=== PATIENT | male | born 1985 | race Caucasian/White ===

== ENCOUNTER 2016-05-22 17:04 | Emergency (ER) | payer OTHER ==
[2016-05-22 17:26] VITALS: BP 143/88
[2016-05-22] MEDS ORDERED: Proparacaine 0.5% Ophth Soln 15 ML Bottle EYERT ONE (17:38)
--- NOTE | 2016-05-22 18:22 | EDM.PDOC ---
ED HPI EYE COMPLAINT - General Chief Complaint: Eye Problems Stated Complaint: MATERIAL STUCK IN EYE Time Seen by Provider: 05/22/16 17:24 Source: Reports: Patient History Limitations: Reports: No limitations - History of Present Illness INITIAL COMMENTS - FREE TEXT/NARRATIVE: Presents reporting that he was fine when he went to bed last night but when he awoke his right eye was irritated and red. During the day it has been increasingly irritated feeling and tearing. 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 - Related Data Allergies/ADRs: Allergies silver [From Tegaderm AG Mesh] Allergy (Verified 05/22/16 17:22) Hives Home Meds: Ambulatory Orders Medication Instructions Recorded Confirmed Albuterol [Proventil HFA] 1 puff INH ASDIRECTED 05/22/16 05/22/16 Adam/Polymyx B Sulf/Dexameth 2 drop OP Q4HR #1 bottle 05/22/16 [Pmkjkw-Vpgvr-Sapfviep Eye Drop] Past Medical History HEENT History: Reports: None Cardiovascular History: Reports: None Other Cardiovascular History: No medications for BP currently, denies any in past Respiratory History: Reports: Asthma Gastrointestinal History: Reports: None Genitourinary History: Reports: None Other Musculoskeletal History: torn right rotator cuff Neurological History: Reports: None Psychiatric History: Reports: None Endocrine/Metabolic History: Reports: None Hematologic History: Reports: None Oncologic (Cancer) History: Reports: None Other Dermatologic History: Current rash on arms and chest "office assistance seen in [facility] prescribed, they said some type of yeast" - Infectious Disease History Infectious Disease History: Reports: None - Past Surgical History Other HEENT Surgeries/Procedures: tooth extractions Other Male Surgeries/Procedures: Removal kidney stone Social & Family History - Family History Family Medical History: Noncontributory - Tobacco Use Smoking Status *Q: Never Smoker Years of Tobacco use: 2 Second Hand Smoke Exposure: Yes - Caffeine Use Caffeine Use: Reports: Soda - Alcohol Use Days Per Week of Alcohol Use: 2 Number of Drinks Per Day: 0 Total Drinks Per Week: 0 - Recreational Drug Use Recreational Drug Use: No Drug Use in Last 12 Months: No ED ROS GENERAL - Review of Systems Review Of Systems: ROS reveals no pertinent complaints other than HPI. ED EXAM GENERAL W FULL EYE - Physical Exam Exam: See Below Exam Limited By: No limitations General Appearance: alert, no apparent distress Visual acuity (R) 20/: 40 Visual acuity (L) 20/: 25 With Correction: No Eyelids: bilateral: normal appearance Conjunctiva & Sclera: right: injected Cornea Exam: right: corneal abrasion, examined with flourescein Extraocular Movements: bilateral: intact Pupils: normal accommodation Pupillary Size: bilateral: 4 mm Pupillary Reaction: bilateral: brisk Anterior Chamber: bilateral: normal appearance Ears: normal external exam Nose: normal inspection Throat/Mouth: Normal inspection Head: atraumatic, normocephalic Neck: normal inspection Respiratory/Chest: no respiratory distress Cardiovascular: normal peripheral pulses GI/Abdominal: soft Extremities: normal inspection Neurological: alert, oriented, normal cognition Psychiatric: normal affect, normal mood Skin Exam: Warm, Dry, Intact, Normal color Lymphatic: no adenopathy Course - Vital Signs Last Recorded V/S: Last Vital Signs Temp 36.9 C 05/22/16 17:23 Pulse 73 05/22/16 17:23 Resp 16 05/22/16 17:23 BP 143/88 H 05/22/16 17:23 Pulse Ox 98 05/22/16 17:23 - Orders/Labs/Meds Meds: Medications Discontinued Medications Generic Name Dose Route Start Last Admin Trade Name Asya PRN Reason Stop Dose Admin Proparacaine HCl 2 ml 05/22/16 17:38 05/22/16 17:55 Proparacaine 0.5% Ophth Soln EYERT 05/22/16 17:39 2 drop STAT ONE Administration Departure - Departure Time of Disposition: 18:16 Disposition: Home, Self-Care 01 Clinical Impression: Corneal abrasion Qualifiers: Encounter type: initial encounter Laterality: right Qualified Code(s): S05.01XA - Injury of conjunctiva and corneal abrasion without foreign body, right eye, initial encounter Referrals: Jonas Cobb MD [Primary Care Provider] - [facility] [Outside] Forms: ED Department Discharge Additional Instructions: 1. use the eyedrops 2 drops every 4 hours for next 3 days 2. if redness and irritation not significantly improved in 24 hours, see ophthalmology promptly 3. return if symptoms worsen or do not improve as expected
== END 2016-05-22 18:39 | disposition home or self-care (01) ==
LOC: MW.ED 17:04
DX: S05.01XA Injury of conjunctiva and corneal abrasion without foreign body, right eye, initial encounter (principal); Z98.890 Other specified postprocedural states; X58.XXXA Exposure to other specified factors, initial encounter
CPT/HCPCS: 99283

== ENCOUNTER 2016-09-28 22:12 | Emergency (ER) | payer OTHER ==
[2016-09-28] MEDS ORDERED: Sodium Chloride 0.9% 2.5 ML Syringe FLUSH PRN (22:24)
[2016-09-28] MEDS ORDERED: HYDROmorphone 2 MG/ML Syringe IVPUSH ONE (22:24)
[2016-09-28] MEDS ORDERED: Ketorolac 30 MG/ML SDV IVPUSH ONE (22:24)
[2016-09-28] MEDS ORDERED: Sodium Chloride 0.9% 10 ML Syringe FLUSH PRN (22:24)
[2016-09-28] MEDS ORDERED: Sodium Chloride 0.9% 1,000 ML IV ONE ×2 (22:24→23:43)
[2016-09-28] MEDS ORDERED: Ondansetron 4 MG/2 ML SDV IVPUSH ONE (22:24)
--- NOTE | 2016-09-28 22:27 | EDM.PDOC ---
ED HPI GENERAL MEDICAL PROBLEM - General Chief Complaint: Flank Pain Stated Complaint: PT HAS STOMACH AND BACK PAIN Time Seen by Provider: 09/28/16 22:20 - History of Present Illness INITIAL COMMENTS - FREE TEXT/NARRATIVE: HISTORY AND PHYSICAL: History of present illness: The patient is a 31-year-old male with a history of asthma and one prior kidney stone which required surgical removal due to the size and location who presents with sudden onset of left flank left abdominal pain that started one hour ago suddenly. Earlier today and this evening had a normal day without any systemic complaints and has had no fever chest pain abdominal trauma vomiting or diarrhea. The pain started suddenly and is in his left back left mid abdomen and radiates to his groin. He has no testicular pain or swelling per se but says that the pain does radiate from his flank down to his groin episodically. He has had nausea with the pain but no fevers or vomiting or diarrhea. Patient did not take anything for pain prior to coming here. He's had no hematuria dysuria or frequency. Review of systems: As per history of present illness and below otherwise all systems reviewed and negative. Past medical history: As per history of present illness and as reviewed below otherwise noncontributory. Surgical history: As per history of present illness and as reviewed below otherwise noncontributory. Social history: No reported history of drug or alcohol abuse. Family history: As per history of present illness and as reviewed below otherwise noncontributory. Physical exam: General: Well-developed overweight male who looks uncomfortable in the room and is uneasy in the room but is nontoxic HEENT: Atraumatic, normocephalic, pupils reactive, negative for conjunctival pallor or scleral icterus, mucous membranes moist, throat clear, neck supple, nontender, trachea midline. Lungs: Clear to auscultation, breath sounds equal bilaterally, chest nontender. Heart: S1S2, regular, negative for clicks, rubs, or JVD. Abdomen: Soft, nondistended, nontender. I cannot reproduce the pain on palpation and there is no rebound or guarding bowel sounds are hypoactive Negative for masses or hepatosplenomegaly. Negative for costovertebral tenderness. Pelvis: Stable nontender. Genitourinary: Deferred. Rectal: Deferred. Extremities: Atraumatic, negative for cords or calf pain. Neurovascular unremarkable. Neuro: Awake, alert, oriented. Cranial nerves II through XII unremarkable. Cerebellum unremarkable. Motor and sensory unremarkable throughout. Exam nonfocal. Diagnostics: CBC CMP UA urine culture CT scan of the abdomen and pelvis Therapeutics: IV fluids Zofran Dilaudid Toradol Flomax urine strainers Patient is feeling significantly improved and he and significant other at the bedside are aware of testing results and need for follow-up with our urologist. I will give him Flomax Zofran and pain medications as well as urine strainers for home. Advised on reasons to return. Impression: Left ureteral stone Definitive disposition and diagnosis as appropriate pending reevaluation and review of above. Flank Pain Score (Numeric/FACES): 10 - Related Data Allergies Allergy/AdvReac Type Severity Reaction Status Date / Time silver Allergy Hives Verified 05/22/16 17:22 [From Tegaderm AG Mesh] Home Meds: Home Meds Albuterol [Proventil HFA] 1 puff INH ASDIRECTED 05/22/16 [History] Citalopram Hydrobromide [Citalopram HBr] 20 mg PO DAILY 09/28/16 [History] Phentermine HCl 37.5 mg PO DAILY 09/28/16 [History] Past Medical History HEENT History: Reports: None Cardiovascular History: Reports: None Other Cardiovascular History: No medications for BP currently, denies any in past Respiratory History: Reports: Asthma Gastrointestinal History: Reports: None Genitourinary History: Reports: None Other Musculoskeletal History: torn right rotator cuff Neurological History: Reports: None Psychiatric History: Reports: None Endocrine/Metabolic History: Reports: None Hematologic History: Reports: None Oncologic (Cancer) History: Reports: None Other Dermatologic History: Current rash on arms and chest "fish protector seen in [facility] prescribed, they said some type of yeast" - Infectious Disease History Infectious Disease History: Reports: None - Past Surgical History Other HEENT Surgeries/Procedures: tooth extractions Other Male Surgeries/Procedures: Removal kidney stone Social & Family History - Family History Family Medical History: Noncontributory - Tobacco Use Smoking Status *Q: Never Smoker Years of Tobacco use: 2 Second Hand Smoke Exposure: Yes - Caffeine Use Caffeine Use: Reports: Soda - Alcohol Use Days Per Week of Alcohol Use: 2 Number of Drinks Per Day: 0 Total Drinks Per Week: 0 - Recreational Drug Use Recreational Drug Use: No Drug Use in Last 12 Months: No ED ROS GENERAL - Review of Systems Review Of Systems: ROS reveals no pertinent complaints other than HPI. ED EXAM, GENERAL - Physical Exam Exam: See Below (See dictation) Course - Vital Signs Last Recorded V/S: Last Vital Signs Temp 36.2 C 09/29/16 00:15 Pulse 74 09/29/16 00:15 Resp 16 09/29/16 00:15 BP 119/80 09/29/16 00:15 Pulse Ox 98 09/29/16 00:15 - Orders/Labs/Meds Orders: Active Orders 24 hr Category Date Time Status Communication Order [RC] STAT Care 09/28/16 23:46 Active Abdomen Pelvis wo Cont [CT] Stat Exams 09/28/16 22:24 Taken CULTURE URINE [RM] Stat Lab 09/29/16 00:46 Received HYDROmorphone [Dilaudid] Med 09/29/16 01:19 Once 0.5 mg IVPUSH ONETIME ONE Sodium Chloride 0.9% [Saline Flush] Med 09/28/16 22:24 Active 10 ml FLUSH ASDIRECTED PRN Sodium Chloride 0.9% [Saline Flush] Med 09/28/16 22:24 Active 2.5 ml FLUSH ASDIRECTED PRN Saline Lock Insert [OM.PC] Stat Oth 09/28/16 22:24 Ordered Medication Orders Sodium Chloride (Saline Flush) 10 ml FLUSH ASDIRECTED PRN PRN Reason: Keep Vein Open Sodium Chloride (Saline Flush) 2.5 ml FLUSH ASDIRECTED PRN PRN Reason: Keep Vein Open Labs: Laboratory Tests 09/28/16 09/28/16 09/29/16 Range/Units 22:30 22:30 00:46 WBC 10.74 (4.0-11.0) K/uL RBC 4.80 (4.50-5.90) M/uL Hgb 15.0 (13.0-17.0) g/dL Hct 41.0 (38.0-50.0) % MCV 85.4 (80.0-98.0) fL MCH 31.3 (27.0-32.0) pg MCHC 36.6 (31.0-37.0) g/dL RDW Std Deviation 40.0 (28.0-62.0) fl RDW Coeff of Jose 13 (11.0-15.0) % Plt Count 206 (150-400) K/uL MPV 9.60 (7.40-12.00) fL Neut % (Auto) 63.3 (48.0-80.0) % Lymph % (Auto) 27.4 (16.0-40.0) % [place] % (Auto) 7.3 (0.0-15.0) % Eos % (Auto) 1.7 (0.0-7.0) % Baso % (Auto) 0.3 (0.0-1.5) % Neut # (Auto) 6.8 H (1.4-5.7) K/uL Lymph # (Auto) 2.9 H (0.6-2.4) K/uL [place] # (Auto) 0.8 (0.0-0.8) K/uL Eos # (Auto) 0.2 (0.0-0.7) K/uL Baso # (Auto) 0.0 (0.0-0.1) K/uL Nucleated RBC % 0.0 /100WBC Nucleated RBCs # 0 K/uL Sodium 144 (136-146) mmol/L Potassium 4.4 (3.5-5.1) mmol/L Chloride 110 (98-110) mmol/L Carbon Dioxide 23 (21-31) mmol/L BUN 16 (6.0-23.0) mg/dL Creatinine 1.3 (0.6-1.5) mg/dL Est Cr Clr Drug Dosing 98.40 mL/min Estimated GFR (MDRD) > 60.0 ml/min Glucose 84 (60-110) mg/dL Calcium 9.5 (8.8-10.8) mg/dL Total Bilirubin 0.8 (0.1-1.5) mg/dL AST 19 (5-40) IU/L ALT 26 (8-54) IU/L Alkaline Phosphatase 83 (40-150) Total Protein 7.7 (6.0-8.0) g/dL Albumin 4.3 (3.5-5.0) g/dL Globulin 3.4 (2.0-3.5) g/dL Albumin/Globulin Ratio 1.3 (1.3-2.8) Urine Color YELLOW Urine Appearance CLEAR Urine pH 5.5 (5.0-8.0) Ur Specific [place] 1.025 (1.001-1.035) Urine Protein NEGATIVE (NEGATIVE) mg/dL Urine Glucose (UA) NEGATIVE (NEGATIVE) mg/dL Urine Ketones NEGATIVE (NEGATIVE) mg/dL Urine Occult Blood LARGE H (NEGATIVE) Urine Nitrite NEGATIVE (NEGATIVE) Urine Bilirubin NEGATIVE (NEGATIVE) Urine Urobilinogen 0.2 (<2.0) EU/dL Ur Leukocyte Esterase TRACE (NEGATIVE) Urine RBC 16-20 (0-2/HPF) Urine WBC 2-4 (0-5/HPF) Ur Epithelial Cells RARE (NONE-FEW) Urine Bacteria RARE (NEGATIVE) Urine Mucus LIGHT (NONE-MOD) Meds: Medications Generic Name Dose Route Start Last Admin Trade Name Asya PRN Reason Stop Dose Admin Sodium Chloride 10 ml 09/28/16 22:24 Saline Flush FLUSH ASDIRECTED PRN Keep Vein Open Sodium Chloride 2.5 ml 09/28/16 22:24 Saline Flush FLUSH ASDIRECTED PRN Keep Vein Open Discontinued Medications Generic Name Dose Route Start Last Admin Trade Name Asya PRN Reason Stop Dose Admin Hydromorphone HCl 1 mg 09/28/16 22:24 09/28/16 22:54 Dilaudid IVPUSH 09/28/16 22:25 1 mg ONETIME ONE Administration Sodium Chloride 1,000 mls @ 999 mls/hr 09/28/16 22:24 09/28/16 22:54 Normal Saline IV 09/28/16 23:24 999 mls/hr STAT ONE Administration Sodium Chloride 1,000 mls @ 999 mls/hr 09/28/16 23:43 09/28/16 23:50 Normal Saline IV 09/29/16 00:43 999 mls/hr STAT ONE Administration Ketorolac Tromethamine 30 mg 09/28/16 22:24 09/28/16 22:53 Toradol IVPUSH 09/28/16 22:25 30 mg ONETIME ONE Administration Ondansetron HCl 4 mg 09/28/16 22:24 09/28/16 22:53 Zofran IVPUSH 09/28/16 22:25 4 mg ONETIME ONE Administration Tamsulosin HCl 0.4 mg 09/28/16 23:46 09/28/16 23:53 Flomax PO 09/28/16 23:47 0.4 mg ONETIME ONE Administration Departure - Departure Time of Disposition: 01:20 Disposition: Home, Self-Care 01 Condition: Good Clinical Impression: Ureterolithiasis - Discharge Information Forms: ED Department Discharge Additional Instructions: The following information is given to patients seen in the emergency department who are being discharged to home. This information is to outline your options for follow-up care. We provide all patients seen in our emergency department with a follow-up referral. The need for follow-up, as well as the timing and circumstances, are variable depending upon the specifics of your emergency department visit. If you don't have a primary care physician on staff, we will provide you with a referral. We always advise you to contact your personal physician following an emergency department visit to inform them of the circumstance of the visit and for follow-up with them and/or the need for any referrals to a consulting specialist. The emergency department will also refer you to a specialist when appropriate. This referral assures that you have the opportunity for followup care with a specialist. All of these measure are taken in an effort to provide you with optimal care, which includes your followup. Under all circumstances we always encourage you to contact your private physician who remains a resource for coordinating your care. When calling for followup care, please make the office aware that this follow-up is from your recent emergency room visit. If for any reason you are refused follow-up, please contact the [facility] emergency department at and ask to speak to the emergency department charge nurse. [facility] [address] [place] [id number] [facility] Primary care- Internal Medicine and Family [address] [address] Push hydration as we discussed and take medications as prescribed--- Flomax Zofran [place]--- and strain all urine. Please call and follow-up with our urologist Dr. Sears in the next few days as well as primary care and return here as needed and as discussed. - My Orders Last 24 Hours: My Active Orders 09/28/16 22:24 Abdomen Pelvis wo Cont [CT] Stat Sodium Chloride 0.9% [Saline Flush] 10 ml FLUSH ASDIRECTED PRN Sodium Chloride 0.9% [Saline Flush] 2.5 ml FLUSH ASDIRECTED PRN Saline Lock Insert [OM.PC] Stat 09/28/16 23:46 Communication Order [RC] STAT 09/29/16 00:46 CULTURE URINE [RM] Stat 09/29/16 01:19 HYDROmorphone [Dilaudid] 0.5 mg IVPUSH ONETIME ONE - Assessment/Plan Last 24 Hours: My Active Orders 09/28/16 22:24 Abdomen Pelvis wo Cont [CT] Stat Sodium Chloride 0.9% [Saline Flush] 10 ml FLUSH ASDIRECTED PRN Sodium Chloride 0.9% [Saline Flush] 2.5 ml FLUSH ASDIRECTED PRN Saline Lock Insert [OM.PC] Stat 09/28/16 23:46 Communication Order [RC] STAT 09/29/16 00:46 CULTURE URINE [RM] Stat 09/29/16 01:19 HYDROmorphone [Dilaudid] 0.5 mg IVPUSH ONETIME ONE
[2016-09-28 23:01] LABS: CHLORIDE,CL 110 mmol/L (98-110); SODIUM,NA 144 mmol/L (136-146)
[2016-09-28] MEDS ORDERED: Tamsulosin 0.4 MG Cap.ER PO ONE (23:46)
[2016-09-29] MEDS ORDERED: HYDROmorphone 2 MG/ML Syringe IVPUSH ONE ×2 (01:19→01:20)
[2016-09-29 01:50] VITALS: BP 121/88
--- NOTE | 2016-09-29 10:02 | CT ---
EXAM DATE: 09/28/16 PATIENT'S AGE: 31 Patient: TIFFANIE WHITE Facility: [place], [place] Site . Site : 1985 Study: CT Abdomen/Pelvis [id number]/25/2017 11:14:37 PM Ordering Physician: Amy Nava Final Report: INDICATION: Left flank pain. History of kidney stones TECHNIQUE: CT abdomen and pelvis without contrast. COMPARISON: None FINDINGS: Lower chest: Unremarkable. Liver: Unremarkable. Spleen: Unremarkable. Pancreas: Unremarkable. Gallbladder and bile ducts: Unremarkable. Kidneys: 4 millimeters obstructing calculi left UVJ with mild left hydronephrosis. Multiple bilateral punctate/subcentimeter nonobstructing renal calculi. Adrenal glands: Unremarkable. GI tract: Unremarkable. Appendix is normal. Vascular structures: Unremarkable. Lymph nodes: Unremarkable. Miscellaneous: Unremarkable. No free air or significant free fluid. Pelvic Organs: Unremarkable. Bones: Unremarkable for age. IMPRESSION: 4 millimeter obstructing calculus at the UVJ with mild left hydronephrosis. Multiple bilateral sub centimeters/punctate nonobstructing renal calculi. Dictated by Julio Patel MD @ 09/28/2016 11:27:09 PM Dictated by: Julio Patel MD @ 09/28/2016 23:27:15 (Electronic Signature) Report Signed by Proxy. [facility]ITAL[facility]
== END 2016-09-29 01:43 | disposition home or self-care (01) ==
LOC: MW.ED 22:12
DX: N20.1 Calculus of ureter (principal); Z87.442 Personal history of urinary calculi; Z79.899 Other long term (current) drug therapy
CPT/HCPCS: 74176; 80053; 81001; 85025; 87086; 96361; 96374; 96375; 96376; 99284; A9270; J1170; J1885; J2405; J7040

== ENCOUNTER 2017-01-13 07:32 | Emergency (ER) | payer OTHER ==
[2017-01-13] MEDS ORDERED: Sodium Chloride 0.9% 1,000 ML IV SCH ×2 (07:55→09:20)
[2017-01-13] MEDS ORDERED: Sodium Chloride 0.9% 2.5 ML Syringe FLUSH PRN (08:09)
[2017-01-13] MEDS ORDERED: Sodium Chloride 0.9% 10 ML Syringe FLUSH PRN (08:09)
[2017-01-13] MEDS ORDERED: Ondansetron 4 MG/2 ML SDV IVPUSH ONE (08:09)
[2017-01-13] MEDS ORDERED: HYDROmorphone 2 MG/ML Syringe IVPUSH ONE ×2 (08:09→09:47)
[2017-01-13] MEDS ORDERED: Ketorolac 30 MG/ML SDV IVPUSH ONE (08:09)
--- NOTE | 2017-01-13 08:13 | EDM.PDOC ---
ED HPI GENERAL MEDICAL PROBLEM - General Chief Complaint: Genitourinary Problem Stated Complaint: KINDNEY STONES Time Seen by Provider: 01/13/17 07:52 - History of Present Illness INITIAL COMMENTS - FREE TEXT/NARRATIVE: HISTORY AND PHYSICAL: History of present illness: The patient is a 32-year-old male with a long-standing history of kidney stones was last seen here in our emergency department in September with a 4 mm calculus on the left UVJ which he passed spontaneously. Patient says he followed up with urologist and was told that he had more kidney stones and he said he had a normal day yesterday slept fine all night and woke this morning with severe left flank and left lower quadrant pain that started at 6:30 this morning. Patient says it feels like a kidney stone. He is nauseated with the pain but has no fevers and has not had any vomiting or diarrhea. Yesterday he was passing his urine normally without hematuria and he had no systemic complaints yesterday. Patient denies any testicular swelling but has pain that starts in his lower back on the left and radiates to the left testicle. Review of systems: As per history of present illness and below otherwise all systems reviewed and negative. Past medical history: As per history of present illness and as reviewed below otherwise noncontributory. Surgical history: As per history of present illness and as reviewed below otherwise noncontributory. Social history: No reported history of drug or alcohol abuse. Family history: As per history of present illness and as reviewed below otherwise noncontributory. Physical exam: General: Well-developed overweight male who is nontoxic and looks very uncomfortable in the room. Vital signs are noted by me HEENT: Atraumatic, normocephalic, negative for conjunctival pallor or scleral icterus, mucous membranes tacky, throat clear, neck supple, nontender, trachea midline. Lungs: Clear to auscultation, breath sounds equal bilaterally, chest nontender. Heart: S1S2, regular rate and rhythm no overt murmurs Abdomen: Soft, nondistended, nontender. I cannot reproduce the pain on palpation. Negative for costovertebral tenderness. Pelvis: Stable nontender. Genitourinary: Deferred. Rectal: Deferred. Extremities: Atraumatic, negative for cords or calf pain. Neurovascular unremarkable. Neuro: Awake, alert, oriented. Cranial nerves II through XII unremarkable. Cerebellum unremarkable. Motor and sensory unremarkable throughout. Exam nonfocal. Back: There are no midline step-offs in his defects of the thoracic or lumbar spine no discrete CVA tenderness and no reproducible soft tissue back pain on palpation Diagnostics: UA urine culture CBC CMP CT scan of the abdomen and pelvis Therapeutics: IV, IV fluids, Zofran, Toradol, Dilaudid Flomax CT scan of September 28 of this year was reviewed by me 0945: Patient states that his pain is improved but is starting to come back. He' s had no nausea here. He is aware of testing results and I will give him one dose of Flomax here and another dose of Dilaudid. He has yet to give a urine sample I will hold him here until I get that. Then we will reevaluate for disposition. He is aware that we do not have urology on-call today and that if his pain was not tolerable that he would need to be transferred for further care. 1055: Patient feels improved again and he is aware of our restrictions here with urology. He says he would like to try to go home and pass the stone as he has passed similar size in the past. We will give him urine strainers, Flomax, Zofran, Percocet, and Cipro antibiotics. He is aware of his urine having white blood cells and this may be a sign of an early infection so we will treat it. I cautioned him on reasons to return to the ED and that if his pain is not managed at home, he started having intractable vomiting or a fever that he will need to be transferred where a urologist as available and he states understanding. Even with this in mind he would still like to try to go home and will connect with follow-up as an outpatient. Impression: Left ureterolithiasis Definitive disposition and diagnosis as appropriate pending reevaluation and review of above. Left Testicle Pain Score (Numeric/FACES): 9 - Related Data Allergies Allergy/AdvReac Type Severity Reaction Status Date / Time silver Allergy Hives Verified 05/22/16 17:22 [From Tegaderm AG Mesh] IV contrast Allergy Chest Uncoded 01/13/17 07:44 Tightness Home Meds: Home Meds Albuterol [Proventil HFA] 1 puff INH ASDIRECTED 05/22/16 [History] Citalopram Hydrobromide [Citalopram HBr] 20 mg PO DAILY 09/28/16 [History] Phentermine HCl 37.5 mg PO DAILY 09/28/16 [History] Past Medical History HEENT History: Reports: None Cardiovascular History: Reports: None Other Cardiovascular History: No medications for BP currently, denies any in past Respiratory History: Reports: Asthma Gastrointestinal History: Reports: None Genitourinary History: Reports: None Other Musculoskeletal History: torn right rotator cuff Neurological History: Reports: None Psychiatric History: Reports: None Endocrine/Metabolic History: Reports: None Hematologic History: Reports: None Oncologic (Cancer) History: Reports: None Other Dermatologic History: Current rash on arms and chest "gauge [facility] [place] [facility] said some type of [facility]" - Infectious Disease History Infectious Disease History: Reports: Chicken Pox - Past Surgical History Other HEENT Surgeries/Procedures: tooth extractions Other Male Surgeries/Procedures: Removal kidney stone Social & Family History - Family History Family Medical History: Noncontributory - Tobacco Use Smoking Status *Q: Never Smoker Years of Tobacco use: 2 Second Hand Smoke Exposure: No - Caffeine Use Caffeine Use: Reports: Energy Drinks, Soda - Alcohol Use Days Per Week of Alcohol Use: 2 Number of Drinks Per Day: 2 Total Drinks Per Week: 4 - Recreational Drug Use Recreational Drug Use: No Drug Use in Last 12 Months: No ED ROS GENERAL - Review of Systems Review Of Systems: ROS reveals no pertinent complaints other than HPI. (See dictation) ED EXAM, GENERAL - Physical Exam Exam: See Below (See dictation) Course - Vital Signs Last Recorded V/S: Last Vital Signs Temp 36.7 C 01/13/17 09:21 Pulse 78 01/13/17 09:21 Resp 16 01/13/17 09:21 BP 134/80 01/13/17 09:21 Pulse Ox 96 01/13/17 09:21 - Orders/Labs/Meds Orders: Active Orders 24 hr Category Date Time Status CULTURE URINE [RM] Stat Lab 01/13/17 10:14 Received Sodium Chloride 0.9% [Normal Saline] 1,000 ml Med 01/13/17 07:55 Active IV ASDIRECTED Sodium Chloride 0.9% [Normal Saline] 1,000 ml Med 01/13/17 09:20 Active IV ASDIRECTED Sodium Chloride 0.9% [Saline Flush] Med 01/13/17 08:09 Active 10 ml FLUSH ASDIRECTED PRN Sodium Chloride 0.9% [Saline Flush] Med 01/13/17 08:09 Active 2.5 ml FLUSH ASDIRECTED PRN Saline Lock Insert [OM.PC] Stat Oth 01/13/17 08:09 Ordered Medication Orders Sodium Chloride (Normal Saline) 1,000 mls @ 999 mls/hr IV ASDIRECTED MAME Last Admin: 01/13/17 07:57 Dose: 999 mls/hr Sodium Chloride (Normal Saline) 1,000 mls @ 999 mls/hr IV ASDIRECTED MAME Last Admin: 01/13/17 09:20 Dose: 999 mls/hr Sodium Chloride (Saline Flush) 10 ml FLUSH ASDIRECTED PRN PRN Reason: Keep Vein Open Sodium Chloride (Saline Flush) 2.5 ml FLUSH ASDIRECTED PRN PRN Reason: Keep Vein Open Labs: Laboratory Tests 01/13/17 01/13/17 01/13/17 Range/Units 07:50 07:50 10:14 WBC 10.38 (4.0-11.0) K/uL RBC 4.90 (4.50-5.90) M/uL Hgb 15.0 (13.0-17.0) g/dL Hct 42.3 (38.0-50.0) % MCV 86.3 (80.0-98.0) fL MCH 30.6 (27.0-32.0) pg MCHC 35.5 (31.0-37.0) g/dL RDW Std Deviation 40.4 (28.0-62.0) fl RDW Coeff of Jose 13 (11.0-15.0) % Plt Count 203 (150-400) K/uL MPV 9.80 (7.40-12.00) fL Neut % (Auto) 63.0 (48.0-80.0) % Lymph % (Auto) 26.6 (16.0-40.0) % [place] % (Auto) 7.5 (0.0-15.0) % Eos % (Auto) 2.4 (0.0-7.0) % Baso % (Auto) 0.5 (0.0-1.5) % Neut # (Auto) 6.5 H (1.4-5.7) K/uL Lymph # (Auto) 2.8 H (0.6-2.4) K/uL [place] # (Auto) 0.8 (0.0-0.8) K/uL Eos # (Auto) 0.3 (0.0-0.7) K/uL Baso # (Auto) 0.1 (0.0-0.1) K/uL Nucleated RBC % 0.0 /100WBC Nucleated RBCs # 0 K/uL Sodium 141 (136-146) mmol/L Potassium 4.2 (3.5-5.1) mmol/L Chloride 107 (98-110) mmol/L Carbon Dioxide 26 (21-31) mmol/L BUN 13 (6.0-23.0) mg/dL Creatinine 1.3 (0.6-1.5) mg/dL Est Cr Clr Drug Dosing 97.50 mL/min Estimated GFR (MDRD) > 60.0 ml/min Glucose 106 (60-110) mg/dL Calcium 9.5 (8.8-10.8) mg/dL Total Bilirubin 0.8 (0.1-1.5) mg/dL AST 20 (5-40) IU/L ALT 28 (8-54) IU/L Alkaline Phosphatase 78 (40-150) Total Protein 7.5 (6.0-8.0) g/dL Albumin 4.1 (3.5-5.0) g/dL Globulin 3.4 (2.0-3.5) g/dL Albumin/Globulin Ratio 1.2 L (1.3-2.8) Urine Color YELLOW Urine Appearance CLOUDY Urine pH 5.5 (5.0-8.0) Ur Specific [place] 1.025 (1.001-1.035) Urine Protein NEGATIVE (NEGATIVE) mg/dL Urine Glucose (UA) NEGATIVE (NEGATIVE) mg/dL Urine Ketones NEGATIVE (NEGATIVE) mg/dL Urine Occult Blood LARGE H (NEGATIVE) Urine Nitrite NEGATIVE (NEGATIVE) Urine Bilirubin NEGATIVE (NEGATIVE) Urine Urobilinogen 0.2 (<2.0) EU/dL Ur Leukocyte Esterase NEGATIVE (NEGATIVE) Urine RBC TOO NUMBEROUS TO CT (0-2/HPF) Urine WBC 8-10 (0-5/HPF) Ur Epithelial Cells RARE (NONE-FEW) Urine Bacteria FEW (NEGATIVE) Meds: Medications Generic Name Dose Route Start Last Admin Trade Name Freq PRN Reason Stop Dose Admin Sodium Chloride 1,000 mls @ 999 mls/hr 01/13/17 07:55 01/13/17 07:57 Normal Saline IV 999 mls/hr ASDIRECTED MAME Administration Sodium Chloride 1,000 mls @ 999 mls/hr 01/13/17 09:20 01/13/17 09:20 Normal Saline IV 999 mls/hr ASDIRECTED MAME Administration Sodium Chloride 10 ml 01/13/17 08:09 Saline Flush FLUSH ASDIRECTED PRN Keep Vein Open Sodium Chloride 2.5 ml 01/13/17 08:09 Saline Flush FLUSH ASDIRECTED PRN Keep Vein Open Discontinued Medications Generic Name Dose Route Start Last Admin Trade Name Freq PRN Reason Stop Dose Admin Hydromorphone HCl 1 mg 01/13/17 08:09 01/13/17 08:28 Dilaudid IVPUSH 01/13/17 08:10 1 mg ONETIME ONE Administration Hydromorphone HCl 1 mg 01/13/17 09:47 01/13/17 10:17 Dilaudid IVPUSH 01/13/17 09:48 1 mg ONETIME ONE Administration Ketorolac Tromethamine 30 mg 01/13/17 08:09 01/13/17 08:26 Toradol IVPUSH 01/13/17 08:10 30 mg ONETIME ONE Administration Ondansetron HCl 4 mg 01/13/17 08:09 01/13/17 08:24 Zofran IVPUSH 01/13/17 08:10 4 mg ONETIME ONE Administration Tamsulosin HCl 0.4 mg 01/13/17 09:48 01/13/17 10:19 Flomax PO 01/13/17 09:49 0.4 mg ONETIME ONE Administration Departure - Departure Time of Disposition: 10:58 Disposition: Home, Self-Care 01 Condition: Good Clinical Impression: Ureterolithiasis - Discharge Information Referrals: PCP,None [Primary Care Provider] - Forms: ED Department Discharge Additional Instructions: The following information is given to patients seen in the emergency department who are being discharged to home. This information is to outline your options for follow-up care. We provide all patients seen in our emergency department with a follow-up referral. The need for follow-up, as well as the timing and circumstances, are variable depending upon the specifics of your emergency department visit. If you don't have a primary care physician on staff, we will provide you with a referral. We always advise you to contact your personal physician following an emergency department visit to inform them of the circumstance of the visit and for follow-up with them and/or the need for any referrals to a consulting specialist. The emergency department will also refer you to a specialist when appropriate. This referral assures that you have the opportunity for followup care with a specialist. All of these measure are taken in an effort to provide you with optimal care, which includes your followup. Under all circumstances we always encourage you to contact your private physician who remains a resource for coordinating your care. When calling for followup care, please make the office aware that this follow-up is from your recent emergency room visit. If for any reason you are refused follow-up, please contact the [facility] emergency department at and ask to speak to the emergency department charge nurse. [facility] [address] [place] [address] [facility] Primary care- Internal Medicine and Family [address] [id number] Please push hydration and strain all urine looking for the stone. Use medications as prescribed. Please call and follow-up with our urologist as we discussed and return to ER as needed and as discussed. - My Orders Last 24 Hours: My Active Orders 01/13/17 07:55 Sodium Chloride 0.9% [Normal Saline] 1,000 ml IV ASDIRECTED 01/13/17 08:09 Sodium Chloride 0.9% [Saline Flush] 10 ml FLUSH ASDIRECTED PRN Sodium Chloride 0.9% [Saline Flush] 2.5 ml FLUSH ASDIRECTED PRN Saline Lock Insert [OM.PC] Stat 01/13/17 09:20 Sodium Chloride 0.9% [Normal Saline] 1,000 ml IV ASDIRECTED 01/13/17 10:14 CULTURE URINE [RM] Stat - Assessment/Plan Last 24 Hours: My Active Orders 01/13/17 07:55 Sodium Chloride 0.9% [Normal Saline] 1,000 ml IV ASDIRECTED 01/13/17 08:09 Sodium Chloride 0.9% [Saline Flush] 10 ml FLUSH ASDIRECTED PRN Sodium Chloride 0.9% [Saline Flush] 2.5 ml FLUSH ASDIRECTED PRN Saline Lock Insert [OM.PC] Stat 01/13/17 09:20 Sodium Chloride 0.9% [Normal Saline] 1,000 ml IV ASDIRECTED 01/13/17 10:14 CULTURE URINE [RM] Stat
[2017-01-13 08:31] LABS: CHLORIDE,CL 107 mmol/L (98-110); SODIUM,NA 141 mmol/L (136-146)
--- NOTE | 2017-01-13 09:10 | CT ---
CT of the abdomen and pelvis without contrast. HISTORY: Pain TECHNIQUE: Axial CT images were obtained of the abdomen and pelvis without contrast. Coronal and sagi ttal reconstructions obtained. FINDINGS: The lung bases are clear, no pleural effusion. The liver, spleen, adrenal glands, and pancreas appear unremarkable for noncontrast examination. The gallbladder appears normal. There is no bulky retroperitoneal lymphadenopathy. No abdominal ascites. There are multiple nonobstructing nephrolithiasis noted bilaterally. There is also a 4 to 5 mm obstru cting stone within the proximal to mid left ureter with mild proximal hydronephrosis. Small right hai al cyst is noted. The large and small bowel are normal in caliber without evidence of obstruction. The appendix appears normal. There is no bulky pelvic lymphadenopathy. No free fluid. No free air. The urinary bladder ap pears normal. The visualized osseous structures appear normal. IMPRESSION: 1. There is a 4 to 5 mm obstructing stone within the mid to proximal left ureter with mild proximal h ydronephrosis. 2. Nonobstructing nephrolithiasis also noted bilaterally.
[2017-01-13 09:23] VITALS: BP 134/80
[2017-01-13] MEDS ORDERED: Tamsulosin 0.4 MG Cap.ER PO ONE (09:48)
[2017-01-13] MEDS ORDERED: Levofloxacin 500 MG Tab PO ONE (11:00)
== END 2017-01-13 11:20 | disposition home or self-care (01) ==
LOC: MW.ED 07:32
DX: N13.2 Hydronephrosis with renal and ureteral calculous obstruction (principal); J45.909 Unspecified asthma, uncomplicated; Z79.899 Other long term (current) drug therapy; Z91.048 Other nonmedicinal substance allergy status; Z91.041 Radiographic dye allergy status
CPT/HCPCS: 36415; 74176; 80053; 81001; 85025; 87086; 96361; 96374; 96375; 96376; 99284; A9270; J1170; J1885; J2405; J7040; 99283

== ENCOUNTER 2017-03-23 06:10 | Emergency (ER) | payer OTHER ==
--- NOTE | 2017-03-23 07:18 | EDM.PDOC ---
ED HPI GENERAL MEDICAL PROBLEM - General Chief Complaint: ENT Problem Stated Complaint: LEFT EAR PAIN Time Seen by Provider: 03/23/17 07:09 - History of Present Illness INITIAL COMMENTS - FREE TEXT/NARRATIVE: HISTORY AND PHYSICAL: History of present illness: Patient 32-year-old white male presents with a concern of left ear pain he denies fever chills nausea vomiting denies trauma or other concern Review of systems: As per history of present illness and below otherwise all systems reviewed and negative. Past medical history: As per history of present illness and as reviewed below otherwise noncontributory. Surgical history: As per history of present illness and as reviewed below otherwise noncontributory. Social history: No reported history of drug or alcohol abuse. Family history: As per history of present illness and as reviewed below otherwise noncontributory. Physical exam: HEENT: Atraumatic, normocephalic, pupils reactive, negative for conjunctival pallor or scleral icterus, mucous membranes moist, throat clear, neck supple, nontender, trachea midline. Left TM and external auditory canal injected absent light reflex Lungs: Clear to auscultation, breath sounds equal bilaterally, chest nontender. Heart: S1S2, regular, negative for clicks, rubs, or JVD. Abdomen: Soft, nondistended, nontender. Negative for masses or hepatosplenomegaly. Negative for costovertebral tenderness. Pelvis: Stable nontender. Genitourinary: Deferred. Rectal: Deferred. Extremities: Atraumatic, negative for cords or calf pain. Neurovascular unremarkable. Neuro: Awake, alert, oriented. Cranial nerves II through XII unremarkable. Cerebellum unremarkable. Motor and sensory unremarkable throughout. Exam nonfocal. Diagnostics: None Therapeutics: None Impression: #1 left otitis media/externa Definitive disposition and diagnosis as appropriate pending reevaluation and review of above. left ear Pain Score (Numeric/FACES): 5 - Related Data Allergies Allergy/AdvReac Type Severity Reaction Status Date / Time silver Allergy Hives Verified 03/23/17 06:25 [From Tegaderm AG Mesh] IV contrast Allergy Chest Uncoded 03/23/17 06:25 Tightness Home Meds: Home Meds Albuterol [Proventil HFA] 1 puff INH ASDIRECTED 05/22/16 [History] Past Medical History HEENT History: Reports: None Cardiovascular History: Reports: Hypertension Other Cardiovascular History: No medications for BP currently, denies any in past Respiratory History: Reports: Asthma Gastrointestinal History: Reports: None Genitourinary History: Reports: Renal Calculus Other Musculoskeletal History: torn right rotator cuff Neurological History: Reports: None Psychiatric History: Reports: Anxiety Endocrine/Metabolic History: Reports: None Hematologic History: Reports: None Immunologic History: Reports: None Oncologic (Cancer) History: Reports: None Dermatologic History: Reports: None Other Dermatologic History: Current rash on arms and chest [facility], they said some type of yeast" - Infectious Disease History Infectious Disease History: Reports: None - Past Surgical History Head Surgeries/Procedures: Reports: None HEENT Surgical History: Reports: Oral Surgery Other Male Surgeries/Procedures: Removal kidney stone Musculoskeletal Surgical History: Reports: Shoulder Surgery Social & Family History - Family History Family Medical History: Noncontributory - Tobacco Use Smoking Status *Q: Never Smoker Years of Tobacco use: 2 Second Hand Smoke Exposure: No - Caffeine Use Caffeine Use: Reports: Soda - Alcohol Use Days Per Week of Alcohol Use: 2 Number of Drinks Per Day: 2 Total Drinks Per Week: 4 - Recreational Drug Use Recreational Drug Use: No Drug Use in Last 12 Months: No ED ROS GENERAL - Review of Systems Review Of Systems: ROS reveals no pertinent complaints other than HPI. ED EXAM, GENERAL - Physical Exam Exam: See Below (See dictation) Course - Vital Signs Last Recorded V/S: Last Vital Signs Temp 36.5 C 03/23/17 06:25 Pulse 90 03/23/17 06:25 Resp 18 03/23/17 06:25 BP 164/100 H 03/23/17 06:25 Pulse Ox 96 03/23/17 06:25 - Orders/Labs/Meds Orders: Active Orders 24 hr Category Date Time Status Chest 1V Frontal [CR] Stat Exams 03/23/17 06:52 Ordered Departure - Departure Time of Disposition: 07:18 Disposition: Home, Self-Care 01 Condition: Good Clinical Impression: Otitis media, Otitis externa - Discharge Information Referrals: Jonas Cobb MD [Primary Care Provider] - Additional Instructions: The following information is given to patients seen in the emergency department who are being discharged to home. This information is to outline your options for follow-up care. We provide all patients seen in our emergency department with a follow-up referral. The need for follow-up, as well as the timing and circumstances, are variable depending upon the specifics of your emergency department visit. If you don't have a primary care physician on staff, we will provide you with a referral. We always advise you to contact your personal physician following an emergency department visit to inform them of the circumstance of the visit and for follow-up with them and/or the need for any referrals to a consulting specialist. The emergency department will also refer you to a specialist when appropriate. This referral assures that you have the opportunity for followup care with a specialist. All of these measure are taken in an effort to provide you with optimal care, which includes your followup. Under all circumstances we always encourage you to contact your private physician who remains a resource for coordinating your care. When calling for followup care, please make the office aware that this follow-up is from your recent emergency room visit. If for any reason you are refused follow-up, please contact the [facility] emergency department at and asked to speak to the emergency department charge nurse. Augmentin/Cortisporin/hydrocodone as prescribed follow-up primary medical doctor 1-2 days return as needed as discussed - My Orders Last 24 Hours: My Active Orders 03/23/17 06:52 Chest 1V Frontal [CR] Stat - Assessment/Plan Last 24 Hours: My Active Orders 03/23/17 06:52 Chest 1V Frontal [CR] Stat
[2017-03-23 07:47] VITALS: BP 141/101
== END 2017-03-23 07:48 | disposition home or self-care (01) ==
LOC: MW.ED 06:10
DX: H60.92 Unspecified otitis externa, left ear (principal); H66.92 Otitis media, unspecified, left ear; I10 Essential (primary) hypertension; Z91.041 Radiographic dye allergy status
CPT/HCPCS: 87804; 99282; 99283

== ENCOUNTER 2017-04-29 07:09 | Emergency (ER) | payer OTHER ==
[2017-04-29] MEDS ORDERED: HYDROmorphone 2 MG/ML SDV IVPUSH ONE (07:25)
[2017-04-29] MEDS ORDERED: methylPREDNISolone Sodium Succinate 125 MG/2 ML SDV IVPUSH ONE (07:25)
[2017-04-29] MEDS ORDERED: Sodium Chloride 0.9% 1,000 ML IV ONE (07:25)
[2017-04-29] MEDS ORDERED: Tamsulosin 0.4 MG Cap.ER PO ONE (07:25)
[2017-04-29] MEDS ORDERED: Ondansetron 4 MG/2 ML SDV IVPUSH ONE (07:27)
--- NOTE | 2017-04-29 07:28 | EDM.PDOC ---
ED HPI GENERAL MEDICAL PROBLEM - General Chief Complaint: Flank Pain Stated Complaint: KIDNEY STONES Time Seen by Provider: 04/29/17 07:27 Source of Information: Reports: Patient - History of Present Illness INITIAL COMMENTS - FREE TEXT/NARRATIVE: HISTORY AND PHYSICAL: History of present illness: [ Patient presents with left flank pain 8 out of 10 nonradiating, history of renal stones and lithotripsy performed Tuesday in mind that, he did have some stones that measured up to 4-6 mm that were residual, he had declined stenting treatments previously no fever nausea vomiting chills sweats ] Review of systems: As per history of present illness and below otherwise all systems reviewed and negative. Past medical history: As per history of present illness and as reviewed below otherwise noncontributory. Surgical history: As per history of present illness and as reviewed below otherwise noncontributory. Social history: No reported history of drug or alcohol abuse. Family history: As per history of present illness and as reviewed below otherwise noncontributory. Physical exam: HEENT: Atraumatic, normocephalic, pupils reactive, negative for conjunctival pallor or scleral icterus, mucous membranes moist, throat clear, neck supple, nontender, trachea midline. Lungs: Clear to auscultation, breath sounds equal bilaterally, chest nontender. Heart: S1S2, regular, negative for clicks, rubs, or JVD. Abdomen: Soft, nondistended, nontender. Negative for masses or hepatosplenomegaly. Negative for costovertebral tenderness. Pelvis: Stable nontender. Genitourinary: Deferred. Rectal: Deferred. Extremities: Atraumatic, negative for cords or calf pain. Neurovascular unremarkable. Neuro: Awake, alert, oriented. Cranial nerves II through XII unremarkable. Cerebellum unremarkable. Motor and sensory unremarkable throughout. Exam nonfocal. Diagnostics: [CBC CMP UA urine culture CT abdomen pelvis no contrast ] Therapeutics: [1 L normal saline bolus Zofran 8 mg IV Solu-Medrol 125 mg IV Flomax 0.4 mg by mouth Dilaudid 2 mg IV Toradol 30 mg IV Issue and has Percocet at home I did speak with Dr. Larsen urology at [facility], the patient's urologist who performed lithotripsy on Tuesday, she states that she could see the patient on Tuesday as he has declined stenting in the past however in the interim the patient did pass a 4-5 mm irregular stone with ease of pain, hence he'll be discharged she can certainly follow on Tuesday where his next lithotripsy was scheduled for a month he'll redirect with Dr. Larsen the acute pain has resolved at this time with the passing of this stone wall. The emergency room. ] Impression: Nephrolithiasis [Recent lithotripsy left ureteral stone-past Pain resolved Definitive disposition and diagnosis as appropriate pending reevaluation and review of above. Left Groin Pain Score (Numeric/FACES): 10 - Related Data Allergies Allergy/AdvReac Type Severity Reaction Status Date / Time silver Allergy Hives Verified 04/29/17 07:17 [From Tegaderm AG Mesh] IV contrast Allergy Chest Uncoded 04/29/17 07:17 Tightness Home Meds: Home Meds Albuterol [Proventil HFA] 1 puff INH ASDIRECTED 05/22/16 [History] Acetaminophen/oxyCODONE [Percocet 325-5 MG] 1 each PO Q4HR PRN 04/29/17 [History ] Fluticasone Propionate [Flovent Hfa] 10.6 gm IH ASDIRECTED 04/29/17 [History] Tamsulosin HCl [Flomax] 0.4 mg PO DAILY 04/29/17 [History] Past Medical History HEENT History: Reports: None Cardiovascular History: Reports: Hypertension Other Cardiovascular History: No medications for BP currently, denies any in past Respiratory History: Reports: Asthma Gastrointestinal History: Reports: None Genitourinary History: Reports: Renal Calculus Other Musculoskeletal History: torn right rotator cuff Neurological History: Reports: None Psychiatric History: Reports: Anxiety Endocrine/Metabolic History: Reports: None Hematologic History: Reports: None Immunologic History: Reports: None Oncologic (Cancer) History: Reports: None Dermatologic History: Reports: None Other Dermatologic History: Current rash on arms and chest "batch still operator seen in [place] (Ghislaine) trent prescribed, they said some type of yeast" - Infectious Disease History Infectious Disease History: Reports: Chicken Pox - Past Surgical History Head Surgeries/Procedures: Reports: None HEENT Surgical History: Reports: Oral Surgery Male Surgical History: Reports: Lithotripsy (ESWL) Other Male Surgeries/Procedures: Removal kidney stone Musculoskeletal Surgical History: Reports: Shoulder Surgery Social & Family History - Family History Family Medical History: Noncontributory - Tobacco Use Smoking Status *Q: Former Smoker Years of Tobacco use: 2 Used Tobacco, but Quit: Yes Month Tobacco Last Used: 2005 Second Hand Smoke Exposure: No - Caffeine Use Caffeine Use: Reports: Soda - Alcohol Use Days Per Week of Alcohol Use: 2 Number of Drinks Per Day: 2 Total Drinks Per Week: 4 - Recreational Drug Use Recreational Drug Use: No Drug Use in Last 12 Months: No ED ROS GENERAL - Review of Systems Review Of Systems: ROS reveals no pertinent complaints other than HPI. ED EXAM, GENERAL - Physical Exam Exam: See Below Course - Vital Signs Last Recorded V/S: Last Vital Signs Temp 97.9 F 04/29/17 07:19 Pulse 82 04/29/17 07:19 Resp 16 04/29/17 07:19 BP 150/90 H 04/29/17 07:19 Pulse Ox 96 04/29/17 07:19 - Orders/Labs/Meds Orders: Active Orders 24 hr Category Date Time Status Abdomen Pelvis wo Cont [CT] Stat Exams 04/29/17 07:27 Taken CULTURE URINE [RM] Stat Lab 04/29/17 07:45 Received Labs: Laboratory Tests 04/29/17 04/29/17 04/29/17 Range/Units 07:45 07:45 07:45 WBC 9.93 (4.0-11.0) K/uL RBC 4.70 (4.50-5.90) M/uL Hgb 14.4 (13.0-17.0) g/dL Hct 40.0 (38.0-50.0) % MCV 85.1 (80.0-98.0) fL MCH 30.6 (27.0-32.0) pg MCHC 36.0 (31.0-37.0) g/dL RDW Std Deviation 41.1 (28.0-62.0) fl RDW Coeff of Jose 13 (11.0-15.0) % Plt Count 191 (150-400) K/uL MPV 9.50 (7.40-12.00) fL Neut % (Auto) 67.5 (48.0-80.0) % Lymph % (Auto) 21.5 (16.0-40.0) % [place] % (Auto) 8.9 (0.0-15.0) % Eos % (Auto) 1.8 (0.0-7.0) % Baso % (Auto) 0.3 (0.0-1.5) % Neut # (Auto) 6.7 H (1.4-5.7) K/uL Lymph # (Auto) 2.1 (0.6-2.4) K/uL [place] # (Auto) 0.9 H (0.0-0.8) K/uL Eos # (Auto) 0.2 (0.0-0.7) K/uL Baso # (Auto) 0.0 (0.0-0.1) K/uL Nucleated RBC % 0.0 /100WBC Nucleated RBCs # 0 K/uL Sodium 138 (136-146) mmol/L Potassium 3.9 (3.5-5.1) mmol/L Chloride 105 (98-110) mmol/L Carbon Dioxide 23 (21-31) mmol/L BUN 12 (6.0-23.0) mg/dL Creatinine 1.1 (0.6-1.5) mg/dL Est Cr Clr Drug Dosing 115.23 mL/min Estimated GFR (MDRD) > 60.0 ml/min Glucose 94 (60-110) mg/dL Calcium 9.1 (8.8-10.8) mg/dL Total Bilirubin 0.6 (0.1-1.5) mg/dL AST 21 (5-40) IU/L ALT 28 (8-54) IU/L Alkaline Phosphatase 89 (40-150) Total Protein 7.0 (6.0-8.0) g/dL Albumin 4.1 (3.5-5.0) g/dL Globulin 2.9 (2.0-3.5) g/dL Albumin/Globulin Ratio 1.4 (1.3-2.8) Urine Color YELLOW Urine Appearance CLEAR Urine pH 5.5 (5.0-8.0) Ur Specific [place] 1.020 (1.001-1.035) Urine Protein NEGATIVE (NEGATIVE) mg/dL Urine Glucose (UA) NEGATIVE (NEGATIVE) mg/dL Urine Ketones NEGATIVE (NEGATIVE) mg/dL Urine Occult Blood LARGE H (NEGATIVE) Urine Nitrite NEGATIVE (NEGATIVE) Urine Bilirubin NEGATIVE (NEGATIVE) Urine Urobilinogen 0.2 (<2.0) EU/dL Ur Leukocyte Esterase NEGATIVE (NEGATIVE) Urine RBC 8-10 (0-2/HPF) Urine WBC 0-1 (0-5/HPF) Ur Epithelial Cells RARE (NONE-FEW) Urine Bacteria RARE (NEGATIVE) Meds: Medications Discontinued Medications Generic Name Dose Route Start Last Admin Trade Name Asya PRN Reason Stop Dose Admin Hydromorphone HCl 2 mg 04/29/17 07:25 04/29/17 07:42 Dilaudid IVPUSH 04/29/17 07:26 2 mg ONETIME ONE Administration Sodium Chloride 1,000 mls @ 999 mls/hr 04/29/17 07:25 04/29/17 07:43 Normal Saline IV 04/29/17 08:25 999 mls/hr STAT ONE Administration Ketorolac Tromethamine 30 mg 04/29/17 09:55 04/29/17 10:00 Toradol IVPUSH 04/29/17 09:56 30 mg ONETIME ONE Administration Methylprednisolone Sodium Succinate 125 mg 04/29/17 07:25 04/29/17 07:41 Solu-Medrol IVPUSH 04/29/17 07:26 125 mg ONETIME ONE Administration Ondansetron HCl 8 mg 04/29/17 07:27 04/29/17 07:47 Zofran IVPUSH 04/29/17 07:28 8 mg ONETIME ONE Administration Tamsulosin HCl 0.4 mg 04/29/17 07:25 04/29/17 07:52 Flomax PO 04/29/17 07:26 0.4 mg ONETIME ONE Administration Departure - Departure Time of Disposition: 10:16 Disposition: Home, Self-Care 01 Condition: Good Clinical Impression: Ureteral stone - Discharge Information Referrals: PCP,None [Primary Care Provider] - Forms: ED Department Discharge Additional Instructions: Continue medications as directed Follow-up with urology as scheduled Your urologist has stated that she can bump your appointment up to Tuesday as needed In the interim return if symptoms persist or worsen Return stone is to your urologist for pathology The following information is given to patients seen in the emergency department who are being discharged to home. This information is to outline your options for follow-up care. We provide all patients seen in our emergency department with a follow-up referral. The need for follow-up, as well as the timing and circumstances, are variable depending upon the specifics of your emergency department visit. If you don't have a primary care physician on staff, we will provide you with a referral. We always advise you to contact your personal physician following an emergency department visit to inform them of the circumstance of the visit and for follow-up with them and/or the need for any referrals to a consulting specialist. The emergency department will also refer you to a specialist when appropriate. This referral assures that you have the opportunity for follow-up care with a specialist. All of these measure are taken in an effort to provide you with optimal care, which includes your follow-up. Under all circumstances we always encourage you to contact your private physician who remains a resource for coordinating your care. When calling for follow-up care, please make the office aware that this follow-up is from your recent emergency room visit. If for any reason you are refused follow-up, please contact the [facility] emergency department at and asked to speak to the emergency department charge nurse. - My Orders Last 24 Hours: My Active Orders 04/29/17 07:27 Abdomen Pelvis wo Cont [CT] Stat 04/29/17 07:45 CULTURE URINE [RM] Stat - Assessment/Plan Last 24 Hours: My Active Orders 04/29/17 07:27 Abdomen Pelvis wo Cont [CT] Stat 04/29/17 07:45 CULTURE URINE [RM] Stat
[2017-04-29 08:18] LABS: CHLORIDE,CL 105 mmol/L (98-110); SODIUM,NA 138 mmol/L (136-146)
[2017-04-29] MEDS ORDERED: Ketorolac 30 MG/ML SDV IVPUSH ONE (09:55)
[2017-04-29 10:39] VITALS: BP 136/96
--- NOTE | 2017-04-29 16:20 | CT ---
EXAM DATE: 04/29/17 PATIENT'S AGE: 32 Patient: TIFFANIE WHITE Facility: [place], [place] Site . Site : 1985 Study: CT Abdomen/Pelvis [id number]/[id number] 8:19:11 AM Ordering Physician: Doctor Mcintosh Final Report: INDICATION: Left flank pain. Lithotripsy Tuesday04/27/2017. TECHNIQUE: CT abdomen and pelvis without IV contrast. COMPARISON: CT 01/13/2017 FINDINGS: Minimal linear atelectasis or scarring in the lungs. Mild fatty infiltration of the liver with focal fatty sparing adjacent to the gallbladder. 5-6 mm irregular stone or collection of stones in the left UVJ is new. Previously there was a stone in the left mid to proximal ureter. Today`s left ureteral stone or stones are partially obstructing resulting in greater than mild hydronephrosis and ureteral dilatation as well as mild perinephric and periureteral fluid in soft tissue stranding. Multiple stones in the left kidney have changed variably with some new stones developing and other stones decreasing, while still other stones have increased in size. Multiple small to intermediate size stones in the left kidney some which in the lower pole or irregular and could be a developing staghorn calculi. Few small stones in the right kidney less prominent. Small cyst in the right kidney. Colonic diverticulosis. Appendix normal. Subcutaneous edema in the back. Remainder negative. IMPRESSION: 1. Single irregular 5-6 mm stone in the left UVJ is partially obstructing versus a collection of stones resulting in greater than mild hydronephrosis and other findings of ureteral obstruction as described above is a new finding since January 2017 when there was a small stone in the left mid to proximal ureter. 2. Multiple bilateral renal calculi have changed variably with some decreasing in size and others increasing in size and number. The greatest stone burden is in the left kidney. Other findings as above. Please note that all CT scans at this facility use dose modulation, iterative reconstruction, and/or weight-based dosing when appropriate to reduce radiation dose to as low as reasonably achievable. Dictated by Garrett Julian MD @ Apr 29 2017 8:31AM (Electronic Signature) Report Signed by Proxy. [facility]
== END 2017-04-29 10:35 | disposition home or self-care (01) ==
LOC: MW.ED 07:09
DX: N13.2 Hydronephrosis with renal and ureteral calculous obstruction (principal); I10 Essential (primary) hypertension; J45.909 Unspecified asthma, uncomplicated; Z87.891 Personal history of nicotine dependence; Z79.899 Other long term (current) drug therapy; Z91.09 Other allergy status, other than to drugs and biological substances; Z91.041 Radiographic dye allergy status
CPT/HCPCS: 36415; 74176; 80053; 81001; 85025; 87086; 96361; 96374; 96375; 99284; A9270; J1170; J1885; J2405; J2930; J7040; 99283

== ENCOUNTER 2017-05-22 21:52 | Emergency (ER) | payer OTHER ==
--- NOTE | 2017-05-22 22:16 | EDM.PDOC ---
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 He is in no distress tonight but states his chest is tight on arrival blood pressure is 180 over 106, did improve somewhat after settling into the ER however did provide Lopressor 3 doses and hydrochlorothiazide ultimately bringing his blood pressure down to 140/80 chest tightness is resolved No fever nausea vomiting chills sweats chest pain shortness breath headache dizziness palpitation no bowel or urine symptoms ] Review of systems: As per history of present illness and below otherwise all systems reviewed and negative. Past medical history: As per history of present illness and as reviewed below otherwise noncontributory. Surgical history: As per history of present illness and as reviewed below otherwise noncontributory. Social history: No reported history of drug or alcohol abuse. Family history: As per history of present illness and as reviewed below otherwise noncontributory. Physical exam: HEENT: Atraumatic, normocephalic, pupils reactive, negative for conjunctival pallor or scleral icterus, mucous membranes moist, throat clear, neck supple, nontender, trachea midline. Lungs: Clear to auscultation, breath sounds equal bilaterally, chest nontender. Heart: S1S2, regular, negative for clicks, rubs, or JVD. Abdomen: Soft, nondistended, nontender. Negative for masses or hepatosplenomegaly. Negative for costovertebral tenderness. Pelvis: Stable nontender. Genitourinary: Deferred. Rectal: Deferred. Extremities: Atraumatic, negative for cords or calf pain. Neurovascular unremarkable. Neuro: Awake, alert, oriented. Cranial nerves II through XII unremarkable. Cerebellum unremarkable. Motor and sensory unremarkable throughout. Exam nonfocal. Diagnostics: [CBC CMP troponin EKG Chest 1 view ] Therapeutics: [Lopressor 5 mg 3 Hydrochlorothiazide 25 mg by mouth now followed by daily #30 no refill Follow-up with primary care as scheduled in one week ] Impression: [Hypertension] Definitive disposition and diagnosis as appropriate pending reevaluation and review of above. head/chest Pain Score (Numeric/FACES): 5 - Related Data Allergies Allergy/AdvReac Type Severity Reaction Status Date / Time silver Allergy Hives Verified 05/22/17 22:03 [From Tegaderm AG Mesh] IV contrast Allergy Chest Uncoded 05/22/17 22:03 Tightness Home Meds: Home Meds Fluticasone Propionate [Flovent Hfa] 1 inh IH BID 04/29/17 [History] Past Medical History HEENT History: Reports: None Cardiovascular History: Reports: Hypertension Other Cardiovascular History: No medications for BP currently, denies any in past Respiratory History: Reports: Asthma Gastrointestinal History: Reports: None Genitourinary History: Reports: Renal Calculus Other Musculoskeletal History: torn right rotator cuff Neurological History: Reports: None Psychiatric History: Reports: Anxiety Endocrine/Metabolic History: Reports: None Hematologic History: Reports: None Immunologic History: Reports: None Oncologic (Cancer) History: Reports: None Dermatologic History: Reports: None Other Dermatologic History: Current rash on arms and chest "imaging science professor seen in [place] (Ghislaine) [facility] prescribed, they said some type of yeast" - Infectious Disease History Infectious Disease History: Reports: Chicken Pox - Past Surgical History Head Surgeries/Procedures: Reports: None HEENT Surgical History: Reports: Oral Surgery Male Surgical History: Reports: Lithotripsy (ESWL) Other Male Surgeries/Procedures: Removal kidney stone Musculoskeletal Surgical History: Reports: Shoulder Surgery Social & Family History - Family History Family Medical History: Noncontributory - Tobacco Use Smoking Status *Q: Never Smoker Years of Tobacco use: 2 Used Tobacco, but Quit: Yes Month/Year Tobacco Last Used: 2005 Second Hand Smoke Exposure: No - Caffeine Use Caffeine Use: Reports: Energy Drinks, Soda, Tea - Alcohol Use Days Per Week of Alcohol Use: 2 Number of Drinks Per Day: 2 Total Drinks Per Week: 4 - Recreational Drug Use Recreational Drug Use: No Drug Use in Last 12 Months: No ED ROS GENERAL - Review of Systems Review Of Systems: ROS reveals no pertinent complaints other than HPI. ED EXAM, GENERAL - Physical Exam Exam: See Below Course - Vital Signs Last Recorded V/S: Last Vital Signs Temp 98.7 F 05/22/17 21:59 Pulse 95 05/22/17 23:29 Resp 18 05/22/17 23:08 BP 143/82 H 05/22/17 23:29 Pulse Ox 97 05/22/17 23:08 - Orders/Labs/Meds Orders: Active Orders 24 hr Category Date Time Status EKG Documentation Completion [RC] STAT Care 05/22/17 22:05 Active Chest 1V Frontal [CR] Stat Exams 05/22/17 22:05 Taken Lactated Ringers [Ringers, Lactated] 1,000 ml Med 05/22/17 22:30 Active IV ASDIRECTED Medication Orders Lactated Ringer's (Ringers, Lactated) 1,000 mls @ 150 mls/hr IV ASDIRECTED MAME Last Admin: 05/22/17 22:56 Dose: 150 mls/hr Labs: Laboratory Tests 05/22/17 05/22/17 05/22/17 Range/Units 22:14 22:14 23:28 WBC 10.27 (4.0-11.0) K/uL RBC 4.77 (4.50-5.90) M/uL Hgb 14.8 (13.0-17.0) g/dL Hct 40.2 (38.0-50.0) % MCV 84.3 (80.0-98.0) fL MCH 31.0 (27.0-32.0) pg MCHC 36.8 (31.0-37.0) g/dL RDW Std Deviation 39.6 (28.0-62.0) fl RDW Coeff of Jose 13 (11.0-15.0) % Plt Count 198 (150-400) K/uL MPV 9.40 (7.40-12.00) fL Neut % (Auto) 67.9 (48.0-80.0) % Lymph % (Auto) 23.2 (16.0-40.0) % [place] % (Auto) 6.8 (0.0-15.0) % Eos % (Auto) 1.9 (0.0-7.0) % Baso % (Auto) 0.2 (0.0-1.5) % Neut # (Auto) 7.0 H (1.4-5.7) K/uL Lymph # (Auto) 2.4 (0.6-2.4) K/uL [place] # (Auto) 0.7 (0.0-0.8) K/uL Eos # (Auto) 0.2 (0.0-0.7) K/uL Baso # (Auto) 0.0 (0.0-0.1) K/uL Nucleated RBC % 0.0 /100WBC Nucleated RBCs # 0 K/uL Sodium 142 (136-148) mmol/L Potassium 3.6 (3.5-5.1) mmol/L Chloride 107 (98-107) mmol/L Carbon Dioxide 24.5 (21.0-32.0) mmol/L BUN 14 (7.0-18.0) mg/dL Creatinine 1.2 (0.8-1.3) mg/dL Est Cr Clr Drug Dosing 99.88 mL/min Estimated GFR (MDRD) > 60.0 ml/min Glucose 147 H (74-106) mg/dL Calcium 8.7 (8.5-10.1) mg/dL Total Bilirubin 0.4 (0.2-1.0) mg/dL AST 21 (15-37) IU/L ALT 40 (14-63) IU/L Alkaline Phosphatase 89 (46-116) U/L Troponin I < 0.050 (0.000-0.056) ng/mL Total Protein 7.2 (6.4-8.2) g/dL Albumin 3.9 (3.4-5.0) g/dL Globulin 3.3 (2.0-3.5) g/dL Albumin/Globulin Ratio 1.2 L (1.3-2.8) Lipase 225 (73-393) U/L Urine Color YELLOW Urine Appearance CLEAR Urine pH 6.5 (5.0-8.0) Ur Specific [place] 1.015 (1.001-1.035) Urine Protein NEGATIVE (NEGATIVE) mg/dL Urine Glucose (UA) NEGATIVE (NEGATIVE) mg/dL Urine Ketones NEGATIVE (NEGATIVE) mg/dL Urine Occult Blood NEGATIVE (NEGATIVE) Urine Nitrite NEGATIVE (NEGATIVE) Urine Bilirubin NEGATIVE (NEGATIVE) Urine Urobilinogen 0.2 (<2.0) EU/dL Ur Leukocyte Esterase TRACE (NEGATIVE) Urine RBC NONE SEEN (0-2/HPF) Urine WBC 0-2 (0-5/HPF) Ur Epithelial Cells RARE (NONE-FEW) Urine Bacteria RARE (NEGATIVE) Meds: Medications Generic Name Dose Route Start Last Admin Trade Name Asya PRN Reason Stop Dose Admin Lactated Ringer's 1,000 mls @ 150 mls/hr 05/22/17 22:30 05/22/17 22:56 Ringers, Lactated IV 150 mls/hr ASDIRECTED MAME Administration Discontinued Medications Generic Name Dose Route Start Last Admin Trade Name Asya PRN Reason Stop Dose Admin Hydrochlorothiazide 25 mg 05/22/17 22:46 05/22/17 23:03 Hydrochlorothiazide PO 05/22/17 22:47 25 mg ONETIME ONE Administration Metoprolol Tartrate 5 mg 05/22/17 22:15 05/22/17 22:58 Lopressor IVPUSH 05/22/17 22:26 5 mg Q5M MAME Administration Departure - Departure Time of Disposition: 23:41 Disposition: Home, Self-Care 01 Condition: Good Clinical Impression: Hypertension - Discharge Information Forms: ED Department Discharge Additional Instructions: Medication as prescribed Return if symptoms persist or worsen Follow-up with primary care as scheduled this week The following information is given to patients seen in the emergency department who are being discharged to home. This information is to outline your options for follow-up care. We provide all patients seen in our emergency department with a follow-up referral. The need for follow-up, as well as the timing and circumstances, are variable depending upon the specifics of your emergency department visit. If you don't have a primary care physician on staff, we will provide you with a referral. We always advise you to contact your personal physician following an emergency department visit to inform them of the circumstance of the visit and for follow-up with them and/or the need for any referrals to a consulting specialist. The emergency department will also refer you to a specialist when appropriate. This referral assures that you have the opportunity for follow-up care with a specialist. All of these measure are taken in an effort to provide you with optimal care, which includes your follow-up. Under all circumstances we always encourage you to contact your private physician who remains a resource for coordinating your care. When calling for follow-up care, please make the office aware that this follow-up is from your recent emergency room visit. If for any reason you are refused follow-up, please contact the [facility] emergency department at and asked to speak to the emergency department charge nurse. - My Orders Last 24 Hours: My Active Orders 05/22/17 22:05 EKG Documentation Completion [RC] STAT Chest 1V Frontal [CR] Stat 05/22/17 22:30 Lactated Ringers [Ringers, Lactated] 1,000 ml IV ASDIRECTED - Assessment/Plan Last 24 Hours: My Active Orders 05/22/17 22:05 EKG Documentation Completion [RC] STAT Chest 1V Frontal [CR] Stat 05/22/17 22:30 Lactated Ringers [Ringers, Lactated] 1,000 ml IV ASDIRECTED
[2017-05-22] MEDS ORDERED: Lactated Ringers 1,000 ML IV SCH (22:30)
[2017-05-22] MEDS: Metoprolol Tartrate 5 MG/5 ML SDV IVPUSH SCH ×3 (22:42→22:58)
[2017-05-22] MEDS ORDERED: Hydrochlorothiazide 25 MG Tab PO ONE (22:46)
[2017-05-22 23:08] LABS: CHLORIDE,CL 107 mmol/L (98-107); SODIUM,NA 142 mmol/L (136-148)
[2017-05-23 00:22] VITALS: BP 135/73
--- NOTE | 2017-05-23 17:11 | CR ---
EXAM DATE: 05/22/17 PATIENT'S AGE: 32 Patient: TIFFANIE WHITE Facility: [place], [place] Site . Site : 1985 Study: XRay Chest [id number] 10:32:20 PM Ordering Physician: Sheial Hameed Final Report: INDICATION: Pain. TECHNIQUE: AP portable chest x-ray. COMPARISON: Today`s CT. FINDINGS: Soft tissue convexity in the right lower medial chest correlates with a prominent cardiac fat pad on today`s CT. Heart size is normal. Lungs are clear without infiltrate. Mild soft tissue convexity in the left hilar region likely related to mild prominence of bronchovascular markings. Lungs are clear without infiltrate. Chest otherwise unremarkable. Dictated by Garrett Julian MD @ May 22 2017 10:54PM (Electronic Signature) Report Signed by Proxy. TK
== END 2017-05-23 00:24 | disposition home or self-care (01) ==
LOC: MW.ED 21:52
DX: I10 Essential (primary) hypertension (principal); Z91.041 Radiographic dye allergy status; Z91.048 Other nonmedicinal substance allergy status; Z87.891 Personal history of nicotine dependence
CPT/HCPCS: 36415; 71045; 80053; 81001; 83690; 84484; 85025; 93005; 96365; 96375; 99285; A9270; J7120; 99283

== ENCOUNTER 2017-05-28 21:33 | Emergency (ER) | payer OTHER ==
[2017-05-28] MEDS ORDERED: LORazepam 2 MG/ML SDV IVPUSH ONE (21:37)
--- NOTE | 2017-05-28 21:38 | EDM.PDOC ---
ED HPI GENERAL MEDICAL PROBLEM - General Stated Complaint: high blood pressure Time Seen by Provider: 05/28/17 21:38 Source of Information: Reports: Patient - History of Present Illness INITIAL COMMENTS - FREE TEXT/NARRATIVE: HISTORY AND PHYSICAL: History of present illness: [Patient presents with chest tightness, he is been seen in the last week with this as well due to hypertension, he was placed on hydrochlorothiazide last week and follow-up with his primary care who agreed with treatment and has set him up for a bariatric surgery consult. Patient after eating at [employer] and some [employer] energy drinks noted that his blood pressure to be high. Stop by the [employer] department as he works for the [employer] and had his blood pressure checked illness near 180/120 at that time Some anxiety concerning health in the patient did provide Ativan 1 mg IV which did help his blood pressure somewhat bringing it into the 150s over low 100s diastolically, ultimately provided some Vasotec 0.625 IV to achieve better control Chest tightness resolved No fever nausea vomiting chills sweats no shortness breath headache dizziness or palpitation no bowel or urine symptoms ] Review of systems: As per history of present illness and below otherwise all systems reviewed and negative. Past medical history: As per history of present illness and as reviewed below otherwise noncontributory. Surgical history: As per history of present illness and as reviewed below otherwise noncontributory. Social history: No reported history of drug or alcohol abuse. Family history: As per history of present illness and as reviewed below otherwise noncontributory. Physical exam: HEENT: Atraumatic, normocephalic, pupils reactive, negative for conjunctival pallor or scleral icterus, mucous membranes moist, throat clear, neck supple, nontender, trachea midline. Lungs: Clear to auscultation, breath sounds equal bilaterally, chest nontender. Heart: S1S2, regular, negative for clicks, rubs, or JVD. Abdomen: Soft, nondistended, nontender. Negative for masses or hepatosplenomegaly. Negative for costovertebral tenderness. Pelvis: Stable nontender. Genitourinary: Deferred. Rectal: Deferred. Extremities: Atraumatic, negative for cords or calf pain. Neurovascular unremarkable. Neuro: Awake, alert, oriented. Cranial nerves II through XII unremarkable. Cerebellum unremarkable. Motor and sensory unremarkable throughout. Exam nonfocal. Diagnostics: [CBC troponin EKG ] Therapeutics: [Ativan 1 mg IV Continue current medications Lifestyle modifications international units no energy drinks 5 hour energy supplements etc. ] Impression: [Chest tightness Hypertension fairly well-controlled/improved from previous] Definitive disposition and diagnosis as appropriate pending reevaluation and review of above. Head Pain Score (Numeric/FACES): 5 Chest Pain Score (Numeric/FACES): 6 - Related Data Allergies Allergy/AdvReac Type Severity Reaction Status Date / Time silver Allergy Hives Verified 05/28/17 21:53 [From Tegaderm AG Mesh] IV contrast Allergy Chest Uncoded 05/28/17 21:53 Tightness tegaderm Allergy Rash Uncoded 05/28/17 22:36 Home Meds: Home Meds Fluticasone Propionate [Flovent Hfa] 1 inh IH BID 04/29/17 [History] Hydrochlorothiazide 25 mg PO DAILY 05/28/17 [History] Past Medical History HEENT History: Reports: None Cardiovascular History: Reports: Hypertension Other Cardiovascular History: No medications for BP currently, denies any in past Respiratory History: Reports: Asthma Gastrointestinal History: Reports: None Genitourinary History: Reports: Renal Calculus Other Musculoskeletal History: torn right rotator cuff Neurological History: Reports: None Psychiatric History: Reports: Anxiety Endocrine/Metabolic History: Reports: None Hematologic History: Reports: None Immunologic History: Reports: None Oncologic (Cancer) History: Reports: None Dermatologic History: Reports: None Other Dermatologic History: Current rash on arms and chest "operator catalyst concentration seen in [facility], they said some type of yeast" - Infectious Disease History Infectious Disease History: Reports: Chicken Pox - Past Surgical History Head Surgeries/Procedures: Reports: None HEENT Surgical History: Reports: Oral Surgery Male Surgical History: Reports: Lithotripsy (ESWL) Other Male Surgeries/Procedures: Removal kidney stone Musculoskeletal Surgical History: Reports: Shoulder Surgery Social & Family History - Family History Family Medical History: Noncontributory - Tobacco Use Smoking Status *Q: Never Smoker Years of Tobacco use: 2 Used Tobacco, but Quit: Yes Month/Year Tobacco Last Used: 2005 Second Hand Smoke Exposure: No - Caffeine Use Caffeine Use: Reports: Energy Drinks, Soda, Tea - Alcohol Use Days Per Week of Alcohol Use: 2 Number of Drinks Per Day: 2 Total Drinks Per Week: 4 - Recreational Drug Use Recreational Drug Use: No Drug Use in Last 12 Months: No ED ROS GENERAL - Review of Systems Review Of Systems: ROS reveals no pertinent complaints other than HPI. ED EXAM, GENERAL - Physical Exam Exam: See Below Course - Vital Signs Last Recorded V/S: Last Vital Signs Temp 98.1 F 05/28/17 21:33 Pulse 105 H 05/28/17 22:48 Resp 17 05/28/17 22:48 BP 157/97 H 05/28/17 22:48 Pulse Ox 94 L 05/28/17 22:48 - Orders/Labs/Meds Orders: Active Orders 24 hr Category Date Time Status EKG Documentation Completion [RC] STAT Care 05/28/17 21:37 Active Enalaprilat [Vasotec IV] Med 05/28/17 22:11 Active 0.625 mg IVPUSH Q6H PRN Medication Orders Enalaprilat (Vasotec Iv) 0.625 mg IVPUSH Q6H PRN PRN Reason: Hypertension Last Admin: 05/28/17 22:24 Dose: 0.625 mg Labs: Laboratory Tests 05/28/17 05/28/17 Range/Units 21:45 21:45 WBC 10.89 (4.0-11.0) K/uL RBC 5.03 (4.50-5.90) M/uL Hgb 15.7 (13.0-17.0) g/dL Hct 42.0 (38.0-50.0) % MCV 83.5 (80.0-98.0) fL MCH 31.2 (27.0-32.0) pg MCHC 37.4 H (31.0-37.0) g/dL RDW Std Deviation 39.5 (28.0-62.0) fl RDW Coeff of Jose 13 (11.0-15.0) % Plt Count 223 (150-400) K/uL MPV 9.40 (7.40-12.00) fL Neut % (Auto) 64.5 (48.0-80.0) % Lymph % (Auto) 25.0 (16.0-40.0) % [place] % (Auto) 8.4 (0.0-15.0) % Eos % (Auto) 1.7 (0.0-7.0) % Baso % (Auto) 0.4 (0.0-1.5) % Neut # (Auto) 7.0 H (1.4-5.7) K/uL Lymph # (Auto) 2.7 H (0.6-2.4) K/uL [place] # (Auto) 0.9 H (0.0-0.8) K/uL Eos # (Auto) 0.2 (0.0-0.7) K/uL Baso # (Auto) 0.0 (0.0-0.1) K/uL Nucleated RBC % 0.0 /100WBC Nucleated RBCs # 0 K/uL Troponin I < 0.050 (0.000-0.056) ng/mL Meds: Medications Generic Name Dose Route Start Last Admin Trade Name Freq PRN Reason Stop Dose Admin Enalaprilat 0.625 mg 05/28/17 22:11 05/28/17 22:24 Vasotec Iv IVPUSH 0.625 mg Q6H PRN Administration Hypertension Discontinued Medications Generic Name Dose Route Start Last Admin Trade Name Freq PRN Reason Stop Dose Admin Lorazepam 1 mg 05/28/17 21:37 05/28/17 21:50 Ativan IVPUSH 05/28/17 21:38 1 mg ONETIME ONE Administration Departure - Departure Time of Disposition: 23:27 Disposition: Home, Self-Care 01 Condition: Good Clinical Impression: Hypertension - Discharge Information Additional Instructions: Lifestyle modification night he cut out fast food high salt intake as well as energy drinks Return if symptoms persist or worsen Follow-up with primary care in 2 weeks for medication adjustments as needed The following information is given to patients seen in the emergency department who are being discharged to home. This information is to outline your options for follow-up care. We provide all patients seen in our emergency department with a follow-up referral. The need for follow-up, as well as the timing and circumstances, are variable depending upon the specifics of your emergency department visit. If you don't have a primary care physician on staff, we will provide you with a referral. We always advise you to contact your personal physician following an emergency department visit to inform them of the circumstance of the visit and for follow-up with them and/or the need for any referrals to a consulting specialist. The emergency department will also refer you to a specialist when appropriate. This referral assures that you have the opportunity for follow-up care with a specialist. All of these measure are taken in an effort to provide you with optimal care, which includes your follow-up. Under all circumstances we always encourage you to contact your private physician who remains a resource for coordinating your care. When calling for follow-up care, please make the office aware that this follow-up is from your recent emergency room visit. If for any reason you are refused follow-up, please contact the [facility] emergency department at and asked to speak to the emergency department charge nurse. - My Orders Last 24 Hours: My Active Orders 05/28/17 21:37 EKG Documentation Completion [RC] STAT 05/28/17 22:11 Enalaprilat [Vasotec IV] 0.625 mg IVPUSH Q6H PRN - Assessment/Plan Last 24 Hours: My Active Orders 05/28/17 21:37 EKG Documentation Completion [RC] STAT 05/28/17 22:11 Enalaprilat [Vasotec IV] 0.625 mg IVPUSH Q6H PRN
[2017-05-28] MEDS ORDERED: Enalaprilat 1.25 MG/ML SDV IVPUSH PRN (22:11)
[2017-05-29 00:11] VITALS: BP 148/91
== END 2017-05-28 23:49 | disposition home or self-care (01) ==
LOC: MW.ED 21:33
DX: I10 Essential (primary) hypertension (principal); R07.89 Other chest pain; J45.909 Unspecified asthma, uncomplicated; Z91.041 Radiographic dye allergy status; Z88.2 Allergy status to sulfonamides; Z88.8 Allergy status to other drugs, medicaments and biological substances; Z87.891 Personal history of nicotine dependence
CPT/HCPCS: 36415; 84484; 85025; 93005; 96374; 96375; 99284; J2060; 99283

== ENCOUNTER 2017-05-29 05:17 | Emergency (ER) | payer OTHER ==
[2017-05-29] MEDS ORDERED: Enalaprilat 1.25 MG/ML SDV IVPUSH STA (05:18)
--- NOTE | 2017-05-29 05:20 | EDM.PDOC ---
ED HPI GENERAL MEDICAL PROBLEM - General Stated Complaint: BLOOD PRESSURE Time Seen by Provider: 05/29/17 05:18 Source of Information: Reports: Patient - History of Present Illness INITIAL COMMENTS - FREE TEXT/NARRATIVE: HISTORY AND PHYSICAL: History of present illness: Patient returns with high blood pressure and headache, see previous note from this evening, is quite anxious about his blood pressure is checking his blood pressure at 3 AM he states he has headache while watching TV and checks his blood pressure is quite high his home readings are again 150s over 120, however on exam I can worsen headache with palpation of paraspinous muscles and trapezius distribution, patient states he is under stress at work. While here in the emergency room he went to sleep his blood pressure is normal 120s over 80s. He did receive a dose of Vasotec on arrival his blood pressure was noted to be 150s over low 100s. No fever nausea vomiting chills sweats no chest pain shortness breath dizziness or palpitation ] Review of systems: As per history of present illness and below otherwise all systems reviewed and negative. Past medical history: As per history of present illness and as reviewed below otherwise noncontributory. Surgical history: As per history of present illness and as reviewed below otherwise noncontributory. Social history: No reported history of drug or alcohol abuse. Family history: As per history of present illness and as reviewed below otherwise noncontributory. Physical exam: HEENT: Atraumatic, normocephalic, pupils reactive, negative for conjunctival pallor or scleral icterus, mucous membranes moist, throat clear, neck supple, nontender, trachea midline. Lungs: Clear to auscultation, breath sounds equal bilaterally, chest nontender. Heart: S1S2, regular, negative for clicks, rubs, or JVD. Abdomen: Soft, nondistended, nontender. Negative for masses or hepatosplenomegaly. Negative for costovertebral tenderness. Pelvis: Stable nontender. Genitourinary: Deferred. Rectal: Deferred. Extremities: Atraumatic, negative for cords or calf pain. Neurovascular unremarkable. Neuro: Awake, alert, oriented. Cranial nerves II through XII unremarkable. Cerebellum unremarkable. Motor and sensory unremarkable throughout. Exam nonfocal. Diagnostics: [CMP, CBC from a few hours prior on file as well as troponin EKG ] Therapeutics: [Hydrochlorothiazide daily Previously Vasotec 0.625 provided will repeat this dose Lisinopril 20 mg by mouth daily #30 no refill Follow-up with primary care ] Impression: [Hypertension uncontrolled Anxiety about health Tension headache Definitive disposition and diagnosis as appropriate pending reevaluation and review of above. Head Pain Score (Numeric/FACES): 6 - Related Data Allergies Allergy/AdvReac Type Severity Reaction Status Date / Time silver Allergy Hives Verified 05/29/17 05:24 [From Tegaderm AG Mesh] IV contrast Allergy Chest Uncoded 05/29/17 05:24 Tightness tegaderm Allergy Rash Uncoded 05/29/17 05:24 Home Meds: Home Meds Fluticasone Propionate [Flovent Hfa] 1 inh IH BID 04/29/17 [History] Hydrochlorothiazide 25 mg PO DAILY 05/28/17 [History] Past Medical History HEENT History: Reports: None Cardiovascular History: Reports: Hypertension Other Cardiovascular History: No medications for BP currently, denies any in past Respiratory History: Reports: Asthma Gastrointestinal History: Reports: None Genitourinary History: Reports: Renal Calculus Other Musculoskeletal History: torn right rotator cuff Neurological History: Reports: None Psychiatric History: Reports: Anxiety Endocrine/Metabolic History: Reports: None Hematologic History: Reports: None Immunologic History: Reports: None Oncologic (Cancer) History: Reports: None Dermatologic History: Reports: None Other Dermatologic History: Current rash on arms and chest "plate keeper seen in [place] ([facility], they said some type of yeast" - Infectious Disease History Infectious Disease History: Reports: Chicken Pox - Past Surgical History Head Surgeries/Procedures: Reports: None HEENT Surgical History: Reports: Oral Surgery Male Surgical History: Reports: Lithotripsy (ESWL) Other Male Surgeries/Procedures: Removal kidney stone Musculoskeletal Surgical History: Reports: Shoulder Surgery Social & Family History - Family History Family Medical History: Noncontributory - Tobacco Use Smoking Status *Q: Never Smoker Years of Tobacco use: 2 Used Tobacco, but Quit: Yes Month/Year Tobacco Last Used: 2005 Second Hand Smoke Exposure: No - Caffeine Use Caffeine Use: Reports: Energy Drinks, Soda, Tea - Alcohol Use Days Per Week of Alcohol Use: 2 Number of Drinks Per Day: 2 Total Drinks Per Week: 4 - Recreational Drug Use Recreational Drug Use: No Drug Use in Last 12 Months: No ED ROS GENERAL - Review of Systems Review Of Systems: ROS reveals no pertinent complaints other than HPI. ED EXAM, GENERAL - Physical Exam Exam: See Below Course - Vital Signs Last Recorded V/S: Last Vital Signs Temp 97 F 05/29/17 05:17 Pulse 77 05/29/17 06:26 Resp 17 05/29/17 06:26 BP 112/78 05/29/17 06:26 Pulse Ox 98 05/29/17 06:26 - Orders/Labs/Meds Orders: Active Orders 24 hr Category Date Time Status EKG 12 Lead [EKG Documentation Completion] [RC] STAT Care 05/29/17 05:38 Active Labs: Laboratory Tests 05/29/17 Range/Units 05:37 Sodium 137 (136-148) mmol/L Potassium 3.3 L (3.5-5.1) mmol/L Chloride 101 (98-107) mmol/L Carbon Dioxide 25.8 (21.0-32.0) mmol/L BUN 16 (7.0-18.0) mg/dL Creatinine 1.2 (0.8-1.3) mg/dL Est Cr Clr Drug Dosing 105.63 mL/min Estimated GFR (MDRD) > 60.0 ml/min Glucose 107 H (74-106) mg/dL Calcium 9.0 (8.5-10.1) mg/dL Total Bilirubin 0.6 (0.2-1.0) mg/dL AST 19 (15-37) IU/L ALT 43 (14-63) IU/L Alkaline Phosphatase 91 (46-116) U/L Total Protein 7.5 (6.4-8.2) g/dL Albumin 3.9 (3.4-5.0) g/dL Globulin 3.6 H (2.0-3.5) g/dL Albumin/Globulin Ratio 1.1 L (1.3-2.8) Meds: Medications Discontinued Medications Generic Name Dose Route Start Last Admin Trade Name Freq PRN Reason Stop Dose Admin Enalaprilat 0.625 mg 05/29/17 05:18 05/29/17 05:39 Vasotec Iv IVPUSH 05/29/17 05:19 0.625 mg NOW STA Administration Metoprolol Tartrate 5 mg 05/29/17 05:30 Lopressor IVPUSH 05/29/17 05:41 Q5M MAME Departure - Departure Time of Disposition: 06:39 Disposition: Home, Self-Care 01 Condition: Good Clinical Impression: Hypertension, Anxiety about health, Tension-type headache - Discharge Information Additional Instructions: The following information is given to patients seen in the emergency department who are being discharged to home. This information is to outline your options for follow-up care. We provide all patients seen in our emergency department with a follow-up referral. The need for follow-up, as well as the timing and circumstances, are variable depending upon the specifics of your emergency department visit. If you don't have a primary care physician on staff, we will provide you with a referral. We always advise you to contact your personal physician following an emergency department visit to inform them of the circumstance of the visit and for follow-up with them and/or the need for any referrals to a consulting specialist. The emergency department will also refer you to a specialist when appropriate. This referral assures that you have the opportunity for follow-up care with a specialist. All of these measure are taken in an effort to provide you with optimal care, which includes your follow-up. Under all circumstances we always encourage you to contact your private physician who remains a resource for coordinating your care. When calling for follow-up care, please make the office aware that this follow-up is from your recent emergency room visit. If for any reason you are refused follow-up, please contact the [facility] emergency department at and asked to speak to the emergency department charge nurse. - My Orders Last 24 Hours: My Active Orders 05/29/17 05:38 EKG 12 Lead [EKG Documentation Completion] [RC] STAT - Assessment/Plan Last 24 Hours: My Active Orders 05/29/17 05:38 EKG 12 Lead [EKG Documentation Completion] [RC] STAT
[2017-05-29 06:05] LABS: CHLORIDE,CL 101 mmol/L (98-107); SODIUM,NA 137 mmol/L (136-148)
[2017-05-29 07:02] VITALS: BP 106/79
[2017-05-30] MEDS: Metoprolol Tartrate 5 MG/5 ML SDV IVPUSH SCH (03:54)
== END 2017-05-29 07:04 | disposition home or self-care (01) ==
LOC: MW.ED 05:17
DX: G44.209 Tension-type headache, unspecified, not intractable (principal); F41.9 Anxiety disorder, unspecified; I10 Essential (primary) hypertension; J45.909 Unspecified asthma, uncomplicated; Z87.891 Personal history of nicotine dependence; Z91.048 Other nonmedicinal substance allergy status; Z91.041 Radiographic dye allergy status; Z79.899 Other long term (current) drug therapy
CPT/HCPCS: 80053; 93005; 96374; 99283; 99284-25

== ENCOUNTER 2017-08-30 07:43 | Emergency (ER) | payer OTHER ==
[2017-08-30] MEDS ORDERED: Ketorolac 60 MG/2 ML SDV IM ONE (08:07)
--- NOTE | 2017-08-30 08:10 | EDM.PDOC ---
ED HPI GENERAL MEDICAL PROBLEM - General Chief Complaint: Upper Extremity Injury/Pain Stated Complaint: RIGHT KNEE/RIGHT SHOULD PAIN Time Seen by Provider: 08/30/17 07:49 Source of Information: Reports: Patient History Limitations: Reports: No Limitations - History of Present Illness INITIAL COMMENTS - FREE TEXT/NARRATIVE: History of present illness: []Patient tripped while at work 2 nights ago and landed on his right knee and right shoulder. He has pain on the top of his shoulder with difficulty raising his arm and pushing forward. He also has swelling and pain on the knee. Review of systems: As per history of present illness and below otherwise all systems reviewed and negative. Past medical history: As per history of present illness and as reviewed below otherwise noncontributory. Surgical history: As per history of present illness and as reviewed below otherwise noncontributory. Social history: No reported history of drug or alcohol abuse. Family history: As per history of present illness and as reviewed below otherwise noncontributory. Physical exam: General: Well developed, well nourished in NAD HEENT: Atraumatic, normocephalic, pupils reactive, negative for conjunctival pallor or scleral icterus, mucous membranes moist, throat clear, neck supple, nontender, trachea midline. Lungs: Clear to auscultation, breath sounds equal bilaterally, chest nontender. Heart: S1S2, regular, negative for clicks, rubs, or JVD. Abdomen: Soft, nondistended, nontender. Negative for masses or hepatosplenomegaly. Negative for costovertebral tenderness. Pelvis: Stable nontender. Genitourinary: Deferred. Rectal: Deferred. Extremities: Right shoulder gross deformities, unable to raise his arm without pain, distal pulses and sensation is intact right knee with mild abrasion and contusion over patella, no palpable effusion, tender to palpation no laxity negative for cords or calf pain. Neurovascular unremarkable. Neuro: Awake, alert, oriented. Cranial nerves II through XII unremarkable. Cerebellum unremarkable. Motor and sensory unremarkable throughout. Exam nonfocal. Diagnostics: []X-rays show right shoulder and knee show no fracture or dislocation or effusions Therapeutics: []Toradol IM, arm sling Impression: []Right knee contusion, right shoulder sprain Plan: []Follow-up with Dr. Kent next available appointment, Gabriela for pain where shoulder sling for comfort return if symptoms worsen or change. Definitive disposition and diagnosis as appropriate pending reevaluation and review of above. right shoulder Pain Score (Numeric/FACES): 5 right knee Pain Score (Numeric/FACES): 5 - Related Data Allergies Allergy/AdvReac Type Severity Reaction Status Date / Time silver Allergy Hives Verified 08/30/17 07:58 [From Tegaderm AG Mesh] IV contrast Allergy Chest Uncoded 05/29/17 05:24 Tightness tegaderm Allergy Rash Uncoded 05/29/17 05:24 Home Meds: Home Meds Fluticasone Propionate [Flovent Hfa] 1 inh IH BID 04/29/17 [History] Hydrochlorothiazide 25 mg PO DAILY 05/28/17 [History] Diclofenac Sodium [Voltaren] 75 mg PO BIDMEALS PRN #20 tab.cr 08/30/17 [Rx] Lisinopril 20 mg PO DAILY 08/30/17 [History] Past Medical History HEENT History: Reports: None Cardiovascular History: Reports: Hypertension, Other (See Below) Other Cardiovascular History: No medications for BP currently, denies any in past Respiratory History: Reports: Asthma Gastrointestinal History: Reports: None Genitourinary History: Reports: Renal Calculus Musculoskeletal History: Reports: Other (See Below) Other Musculoskeletal History: torn right rotator cuff Neurological History: Reports: None Psychiatric History: Reports: Anxiety Endocrine/Metabolic History: Reports: None Hematologic History: Reports: None Immunologic History: Reports: None Oncologic (Cancer) History: Reports: None Dermatologic History: Reports: Other (See Below) Other Dermatologic History: Current rash on arms and chest "material lister seen in [facility], they said some type of yeast" - Infectious Disease History Infectious Disease History: Reports: Chicken Pox - Past Surgical History Head Surgeries/Procedures: Reports: None HEENT Surgical History: Reports: Oral Surgery Cardiovascular Surgical History: Reports: None Respiratory Surgical History: Reports: None GI Surgical History: Reports: None Male Surgical History: Reports: Lithotripsy (ESWL) Other Male Surgeries/Procedures: Removal kidney stone Endocrine Surgical History: Reports: None Neurological Surgical History: Reports: None Musculoskeletal Surgical History: Reports: Shoulder Surgery Oncologic Surgical History: Reports: None Dermatological Surgical History: Reports: None Social & Family History - Family History Family Medical History: Noncontributory - Tobacco Use Smoking Status *Q: Never Smoker Second Hand Smoke Exposure: No - Caffeine Use Caffeine Use: Reports: Coffee, Energy Drinks - Recreational Drug Use Recreational Drug Use: No Review of Systems - Review of Systems Review Of Systems: See Below (See history of present illness) ED EXAM, GENERAL - Physical Exam Exam: See Below (See history of present illness) Course - Vital Signs Last Recorded V/S: Last Vital Signs Temp 97.2 F 08/30/17 07:58 Pulse 67 08/30/17 07:58 Resp 18 08/30/17 07:58 BP 138/76 08/30/17 07:58 Pulse Ox 97 08/30/17 07:58 - Orders/Labs/Meds Orders: Active Orders 24 hr Category Date Time Status Splinting [RC] ASDIRECTED Care 08/30/17 09:40 Ordered Meds: Medications Discontinued Medications Generic Name Dose Route Start Last Admin Trade Name Freq PRN Reason Stop Dose Admin Ketorolac Tromethamine 60 mg 08/30/17 08:07 08/30/17 08:14 Toradol IM 08/30/17 08:08 60 mg ONETIME ONE Administration Departure - Departure Time of Disposition: 09:41 Disposition: Home, Self-Care 01 Condition: Good Clinical Impression: Sprain of right shoulder Qualifiers: Encounter type: initial encounter Shoulder sprain type: unspecified sprain Qualified Code(s): S43.401A - Unspecified sprain of right shoulder joint, initial encounter Contusion of right knee Qualifiers: Encounter type: initial encounter Qualified Code(s): S80.01XA - Contusion of right knee, initial encounter - Discharge Information Prescriptions: Diclofenac Sodium [Voltaren] 75 mg PO BIDMEALS PRN #20 tab.cr PRN Reason: Pain Referrals: Jonas Cobb MD [Primary Care Provider] - Forms: ED Department Discharge Additional Instructions: The following information is given to patients seen in the emergency department who are being discharged to home. This information is to outline your options for follow-up care. We provide all patients seen in our emergency department with a follow-up referral. The need for follow-up, as well as the timing and circumstances, are variable depending upon the specifics of your emergency department visit. If you don't have a primary care physician on staff, we will provide you with a referral. We always advise you to contact your personal physician following an emergency department visit to inform them of the circumstance of the visit and for follow-up with them and/or the need for any referrals to a consulting specialist. The emergency department will also refer you to a specialist when appropriate. This referral assures that you have the opportunity for follow-up care with a specialist. All of these measure are taken in an effort to provide you with optimal care, which includes your follow-up. Under all circumstances we always encourage you to contact your private physician who remains a resource for coordinating your care. When calling for follow-up care, please make the office aware that this follow-up is from your recent emergency room visit. If for any reason you are refused follow-up, please contact the [facility] Emergency Department at and asked to speak to the emergency department charge nurse. [facility] [address], [address] [place] [address] - My Orders Last 24 Hours: My Active Orders 08/30/17 09:40 Splinting [RC] ASDIRECTED - Assessment/Plan Last 24 Hours: My Active Orders 08/30/17 09:40 Splinting [RC] ASDIRECTED
--- NOTE | 2017-08-30 09:23 | CR ---
EXAMINATION: Right shoulder HISTORY: Pain COMPARISON: 02/08/2015 TECHNIQUE: 3 views FINDINGS/IMPRESSION: There is no acute osseous abnormality, dislocation, or fracture. Bone mineraliza tion and joint spaces are preserved.
--- NOTE | 2017-08-30 09:33 | CR ---
EXAMINATION: Right knee HISTORY: Fall COMPARISON: 08/18/2016 TECHNIQUE: 3 views FINDINGS/IMPRESSION: There is no acute osseous abnormality, dislocation, or fracture. Bone mineraliza tion and joint spaces are preserved. No soft tissue swelling or joint effusion.
[2017-08-30 10:00] VITALS: BP 125/86
== END 2017-08-30 09:55 | disposition home or self-care (01) ==
LOC: MW.ED 07:43
DX: S43.401A Unspecified sprain of right shoulder joint, initial encounter (principal); S80.01XA Contusion of right knee, initial encounter; I10 Essential (primary) hypertension; J45.909 Unspecified asthma, uncomplicated; F41.9 Anxiety disorder, unspecified; Z91.048 Other nonmedicinal substance allergy status; Z79.899 Other long term (current) drug therapy
CPT/HCPCS: 73030; 73562; 96372; 99283; J1885

== ENCOUNTER 2020-03-13 13:49 | Emergency (ER) | payer BC ==
[2020-03-13] MEDS ORDERED: Ketorolac 60 MG/2 ML SDV IM ONE (14:17)
[2020-03-13] MEDS ORDERED: methylPREDNISolone Sodium Succinate 125 MG/2 ML SDV IM ONE (14:17)
[2020-03-13] MEDS ORDERED: Ketorolac 30 MG/ML SDV IVPUSH ONE (14:23)
[2020-03-13] MEDS ORDERED: methylPREDNISolone Sodium Succinate 125 MG/2 ML SDV IVPUSH ONE (14:23)
--- NOTE | 2020-03-13 15:46 | CT ---
INDICATION: Low back pain. COMPARISON: None. TECHNIQUE: Noncontrast CT of the lumbar spine. FINDINGS: Normal vertebral body alignment. No acute fractures. No vertebral body loss of height. No spondylolisthesis. No fractures of the visualized lower ribs. No sacral fractures. T12-L1 L1-2 L2-3: No spinal canal or neural foraminal narrowing. L3-4: Mild annular bulge. No narrowing of spinal canal. No neural foraminal narrowing. L4-5: Mild disc degeneration. Central right paracentral disc protrusion measures approximately 5 mm in short axis. Indentation of ventral thecal sac. Moderate narrowing of spinal canal. Right subarticular recess narrowing with impingement of the traversing right L5 nerve root. No neural foraminal narrowing. Mild facet arthropathy. L5-S1: No narrowing of spinal canal. No impingement of the traversing S1 nerve roots. Mild narrowing of the bilateral foramina. Normal visualized SI joints. Right renal cyst. Tiny bilateral caliceal tip stones of both kidneys. No hydronephrosis. IMPRESSION: 1. Normal alignment. No acute fractures. 2. At L4-5, mild disc degeneration. Central and right paracentral disc protrusion. Moderate narrowing of the spinal canal. Right subarticular recess narrowing with impingement of the traversing right L5 nerve root. 3. At L5-S1, mild narrowing of the bilateral neural foramina 4. No spinal canal or neural foraminal narrowing at the remaining levels Please note that all CT scans at this facility use dose modulation, iterative reconstruction, and/or weight-based dosing when appropriate to reduce radiation dose to as low as reasonably achievable. Dictated by Sabas Morales MD @ Mar 13 2020 3:43PM Signed by Dr. Sabas Morales @ Mar 13 2020 3:45PM
--- NOTE | 2020-03-13 16:38 | EDM.PDOC ---
ED HPI GENERAL MEDICAL PROBLEM - General Chief Complaint: Back Pain or Injury Stated Complaint: EMS ARRIVAL Time Seen by Provider: 03/13/20 13:54 Source of Information: Reports: Patient History Limitations: Reports: No Limitations - History of Present Illness INITIAL COMMENTS - FREE TEXT/NARRATIVE: HISTORY AND PHYSICAL: History of present illness: Patient is a 35-year-old male who presents to the ED today via EMS with concern of low back pain. Patient states over the past 1 week he has been having and exacerbation of low back pain. Patient states today when he woke up from a nap, he felt a "popping "sensation in his low back followed by a burning sensation and states that he immediately crawled himself down onto the floor due to pain; stating he did not fall but lowered himself down. Patient states that he did not fall and does not have any weakness but states that the pain was significant enough he felt like he could not move. Patient states he called EMS because he did not want to try to get out to his vehicle due to pain. Patient denies any loss or retention of bowel bladder function or saddle anesthesia. Patient states that he is able to walk and move everything but does have "significant pain "so he chooses not to. Patient states that he has had a history of gout in his left lower extremity/big toe but denies any other health history. Patient denies any direct trauma or injury to his low back. Patient denies fever, chills, chest pain, shortness of breath, or cough. Denies headache, neck stiff ness, change in vision, syncope, or near syncope. Denies nausea, vomiting, abdominal pain, diarrhea, constipation, or dysuria. Has not noted any blood in urine or stool. Patient has been eating and drinking appropriately. Review of systems: As per history of present illness and below otherwise all systems reviewed and negative. Past medical history: As per history of present illness and as reviewed below otherwise noncontributory. Surgical history: As per history of present illness and as reviewed below otherwise noncontributory. Social history: See social history for further information Family history: As per history of present illness and as reviewed below otherwise noncontributory. Physical exam: General: Patient is alert, oriented, and in no acute distress. Patient laying on exam table, on his left side. HEENT: Atraumatic, normocephalic, pupils equal and reactive bilaterally, negative for conjunctival pallor or scleral icterus, mucous membranes moist, TMs normal bilaterally, throat clear, neck supple, nontender, trachea midline. No drooling or trismus noted. No meningeal signs. No hot potato voice noted. Lungs: Clear to auscultation, breath sounds equal bilaterally, chest nontender. Heart: S1S2, regular rate and rhythm without overt murmur Abdomen: Soft, nondistended, nontender. Negative for masses or hepatosplenomegaly. Negative for costovertebral tenderness. Pelvis: Stable nontender. Genitourinary: Deferred. Rectal: Patient declines checking for rectal tone--all risks vs benefits discussed; expresses understanding. Skin: Intact, warm, dry. No lesions or rashes noted. Extremities: No obvious deformity of the complete spine. No step-offs, crepitus, or point tenderness to palpation of the complete spine. Does have full range of motion of the cervical and thoracic spine but does have moderate to severe pain with range of motion of the lumbar spine. Patient does have full range of motion of all extremities. Patellar reflexes intact bilaterally. Patient unwilling to ambulate due to pain but states "he is able to walk". Atraumatic, negative for cords or calf pain. Neurovascular unremarkable. Neuro: Awake, alert, oriented. Cranial nerves II through XII unremarkable. Cerebellum unremarkable. Motor and sensory unremarkable throughout. Exam nonfocal. Notes: Did call and speak to the neurosurgeon on-call for [facility] Dr. Gallagher and thoroughly discussed patients case. She states that she will see patient in her clinic tomorrow. She states that patient should call her clinic in the morning to establish an appointment time to be seen tomorrow. In the meantime, she recommends prescribing 300mg 3 times daily of Neurontin, Toradol 10 mg 3 times daily, tramadol 50 mg every 6 hours, and a Medrol Dosepak. She states that this is her usual protocol for patient specific CT findings. Strict return precautions were thoroughly discussed with patient. Discussed importance for follow-up with Dr. Morales at [facility] tomorrow. Voices understanding and is agreeable to plan of care. Denies any further questions or concerns at this time. Diagnostics: Lumbar CT, (Patient declines UA) Therapeutics: (Received 2mg Dilaudid, 2mg versed via EMS en route to ED), Tordol, Solumedrol Prescription: Medrol dose pack, Toradol, Tramadol (#15), Neurontin (#15) Impression: Low back pain L4-L5 bulging disc Plan: 1. Take medication as prescribed. 2. Call Dr. Morales's, neurosurgery, office tomorrow to establish an appointment time to be seen tomorrow. Been provided above for you to establish an appointment time. 3. Return to the ED as needed and as discussed. Definitive disposition and diagnosis as appropriate pending reevaluation and review of above. lower back Pain Score (Numeric/FACES): 8 - Related Data Allergies Allergy/AdvReac Type Severity Reaction Status Date / Time silver Allergy Hives Verified 03/13/20 14:07 [From Tegaderm AG Mesh] IV contrast Allergy Chest Uncoded 03/13/20 14:07 Tightness tegaderm Allergy Rash Uncoded 03/13/20 14:07 Home Meds: Home Meds Cyanocobalamin (Vitamin B12) [Vitamin B12] 1 tab PO DAILY 02/03/18 [History] Multivitamin [Multivitamins] 1 tab PO DAILY 02/03/18 [History] Pantoprazole Sodium 1 tab PO DAILY 02/03/18 [History] Acetaminophen/oxyCODONE [Percocet 325-5 MG] 1 - 2 tab PO Q4H PRN #60 tablet 02/09/18 [Rx] Allopurinol [Zyloprim] 300 mg PO DAILY 03/13/20 [History] Gabapentin [Neurontin] 300 mg PO TID #10 cap 03/13/20 [Rx] Ketorolac [Toradol] 10 mg PO TID #10 tab 03/13/20 [Rx] methylPREDNISolone [Medrol] 4 mg PO ASDIRECTED #1 dosepk 03/13/20 [Rx] traMADol [Ultram] 50 mg PO Q6H PRN #15 tab 03/13/20 [Rx] Past Medical History HEENT History: Reports: Other (See Below) Other HEENT History: wears glasses, has top and bottom permanent bridges Cardiovascular History: Reports: Hypertension Other Cardiovascular History: No medications for BP currently, HTN in the past not after weight loss Respiratory History: Reports: Asthma Other Respiratory History: states no further asthma since weight loss Gastrointestinal History: Reports: None Genitourinary History: Reports: Renal Calculus Musculoskeletal History: Reports: Back Pain, Chronic, Other (See Below) Other Musculoskeletal History: torn right rotator cuff Neurological History: Reports: Concussion Psychiatric History: Reports: Anxiety, Depression Other Psychiatric History: depression in the past Endocrine/Metabolic History: Reports: Obesity/BMI 30+ Hematologic History: Reports: None Immunologic History: Reports: None Oncologic (Cancer) History: Reports: None Dermatologic History: Reports: None, Other (See Below) - Infectious Disease History Infectious Disease History: Reports: None - Past Surgical History Head Surgeries/Procedures: Reports: None HEENT Surgical History: Reports: Oral Surgery Other HEENT Surgeries/Procedures: tooth extractions Cardiovascular Surgical History: Reports: None Respiratory Surgical History: Reports: None GI Surgical History: Reports: Bariatric Procedure Other GI Surgeries/Procedures: gastric sleeve on Dec 27 2017 Male Surgical History: Reports: Lithotripsy (ESWL) Other Male Surgeries/Procedures: Removal kidney stones x2 Endocrine Surgical History: Reports: None Neurological Surgical History: Reports: None Musculoskeletal Surgical History: Reports: Shoulder Surgery Other Musculoskeletal Surgeries/Procedures:: previous rt shoulder scope Oncologic Surgical History: Reports: None Dermatological Surgical History: Reports: None Social & Family History - Family History Family Medical History: No Pertinent Family History - Caffeine Use Caffeine Use: Reports: None - Recreational Drug Use Recreational Drug Use: No ED ROS GENERAL - Review of Systems Review Of Systems: Comprehensive ROS is negative, except as noted in HPI. ED EXAM, GENERAL - Physical Exam Exam: See Below (see dictation) Course - Vital Signs Last Recorded V/S: Last Vital Signs Temp 97.4 F 03/13/20 13:51 Pulse 71 03/13/20 16:46 Resp 20 03/13/20 13:51 BP 143/71 H 03/13/20 16:46 Pulse Ox 98 03/13/20 16:46 - Orders/Labs/Meds Orders: Active Orders 24 hr Category Date Time Status UA RFX REN AND CULT IF INDIC [URIN] Stat Lab 03/13/20 14:25 Ordered Meds: Medications Discontinued Medications Generic Name Dose Route Start Last Admin Trade Name Freq PRN Reason Stop Dose Admin Ketorolac Tromethamine 60 mg 03/13/20 14:17 03/13/20 14:26 Toradol IM 03/13/20 14:18 Not Given ONETIME ONE Ketorolac Tromethamine 30 mg 03/13/20 14:23 03/13/20 14:25 Toradol IVPUSH 03/13/20 14:24 30 mg ONETIME ONE Administration Methylprednisolone Sodium Succinate 125 mg 03/13/20 14:17 03/13/20 14:26 Solu-Medrol IM 03/13/20 14:18 Not Given ONETIME ONE Methylprednisolone Sodium Succinate 125 mg 03/13/20 14:23 03/13/20 14:25 Solu-Medrol IVPUSH 03/13/20 14:24 125 mg ONETIME ONE Administration Departure - Departure Time of Disposition: 16:34 Disposition: Home, Self-Care 01 Clinical Impression: Bulging disc Low back pain Qualifiers: Chronicity: acute Back pain laterality: unspecified Sciatica presence: without sciatica Qualified Code(s): M54.5 - Low back pain - Discharge Information Prescriptions: methylPREDNISolone [Medrol] 4 mg PO ASDIRECTED #1 dosepk Gabapentin [Neurontin] 300 mg PO TID #10 cap Ketorolac [Toradol] 10 mg PO TID #10 tab traMADol [Ultram] 50 mg PO Q6H PRN #15 tab PRN Reason: Pain (Severe 7-10) Instructions: Acute Back Pain, Adult Referrals: PCP,None [Primary Care Provider] - Forms: ED Department Discharge Additional Instructions: The following information is given to patients seen in the emergency department who are being discharged to home. This information is to outline your options for follow-up care. We provide all patients seen in our emergency department with a follow-up referral. The need for follow-up, as well as the timing and circumstances, are variable depending upon the specifics of your emergency department visit. If you don't have a primary care physician on staff, we will provide you with a referral. We always advise you to contact your personal physician following an emergency department visit to inform them of the circumstance of the visit and for follow-up with them and/or the need for any referrals to a consulting specialist. The emergency department will also refer you to a specialist when appropriate. This referral assures that you have the opportunity for follow-up care with a specialist. All of these measure are taken in an effort to provide you with optimal care, which includes your follow-up. Under all circumstances we always encourage you to contact your private physician who remains a resource for coordinating your care. When calling for follow-up care, please make the office aware that this follow-up is from your recent emergency room visit. If for any reason you are refused follow-up, please contact the Emergency Department at and asked to speak to the emergency department charge nurse. Primary Care [address] [place] [address] [facility] [address] [place] [address] Meenakshi Gallagher, [facility], neurosurgery [address] [place] [address], [address] 1. Take medication as prescribed. 2. Call Dr. Morales's, neurosurgery, office tomorrow to establish an appointment time to be seen tomorrow. Been provided above for you to establish an appointment time. 3. Return to the ED as needed and as discussed. Sepsis Event Note (ED) - Evaluation Sepsis Screening Result: No Definite Risk - Focused Exam Vital Signs: Vital Signs Temp Pulse Resp BP Pulse Ox 03/13/20 16:46 71 143/71 H 98 03/13/20 14:33 74 110/69 98 03/13/20 13:51 97.4 F 73 20 132/73 93 L - My Orders Last 24 Hours: My Active Orders 03/13/20 14:25 UA RFX REN AND CULT IF INDIC [URIN] Stat - Assessment/Plan Last 24 Hours: My Active Orders 03/13/20 14:25 UA RFX REN AND CULT IF INDIC [URIN] Stat
[2020-03-13 16:47] VITALS: BP 143/71; PULSE 71
== END 2020-03-13 16:47 | disposition home or self-care (01) ==
LOC: MW.ED 13:49
DX: M51.26 Other intervertebral disc displacement, lumbar region (principal); I10 Essential (primary) hypertension; J45.909 Unspecified asthma, uncomplicated; E66.9 Obesity, unspecified; Z68.29 Body mass index [BMI] 29.0-29.9, adult; Z88.8 Allergy status to other drugs, medicaments and biological substances; Z91.041 Radiographic dye allergy status; Z79.899 Other long term (current) drug therapy
CPT/HCPCS: 72131; 72131-26; 96374; 96375; 99283; 99284-25; J1885; J2930

== ENCOUNTER 2020-04-01 11:56 | Day surgery (SDC) | payer BC ==
[2020-04-01] MEDS ORDERED: Lidocaine 2% 5 ML SDV INJECT ONE (13:30)
[2020-04-01] MEDS ORDERED: Ropivacaine 0.5% 5 MG/ML 30 ML SDV INJECT ONE (13:30)
[2020-04-01] MEDS ORDERED: Betamethasone Acetate/Betamethasone Sod Phosphate 30 MG/5 ML MDV EPIDUR ONE (13:30)
--- NOTE | 2020-04-01 20:35 | OR ---
SURGEON: lEle Clark D.O. DATE OF PROCEDURE: 04/01/2020 PRIMARY SURGEON: Elle Clark D.O. HAZARDOUS MATERIALS ANALYST: OR staff present: 1. Goldie Flowers RN. 2. Jermain Car RN. 3. Goldie Kelly RT. WOUND CLASS: I. PREOPERATIVE DIAGNOSES: 1. L4-5, L5-S1 herniated disk. 2. L4-5-S1 radiculopathy, right lower extremity. POSTOPERATIVE DIAGNOSES: 1. L4-5, L5-S1 herniated disk. 2. L4-5-S1 radiculopathy, right lower extremity. PROCEDURES PERFORMED: 1. Right L4 transforaminal epidural steroid injection. 2. Right L5 transforaminal epidural steroid injection. 3. Fluoroscopic guidance for needle placement. 4. Local with oral Valium for sedation. SCREENING QUESTIONS: The patient answered "no" to all of the following questions: 1. Are you allergic to iodine, Betadine or latex? 2. Do you have a bleeding disorder? 3. Do you have any joint replacements, heart valve replacements, or a pacemaker? 4. Are you allergic to anti-inflammatories or blood thinners? 5. Do you have any current local or systemic infections? DESCRIPTION OF PROCEDURE: The patient had the procedure thoroughly explained including risks, benefits and alternatives. Consent was signed in my clinic indicating understanding and willingness to proceed. The patient presented to [facility] where the patient was escorted to the dressing room to disrobe and change into a hospital gown. Preoperative vital signs were taken and stable. The patient reported that Valium was taken prior to the procedure. The patient was brought to the procedure room and placed in the prone position on the table. A pillow was placed under the abdomen in order to flatten the lumbar lordosis. The back was prepped with ChloraPrep and sterilely draped. All personnel in the operating room were dressed in appropriate attire including surgical scrubs, head and shoe covers. This was to ensure sterility while in the treatment room. During the time fluoroscopy was in use, all personnel in the operating room wore lead solitario with thyroid collars. Sterile technique was used during the procedure. The fluoroscope was placed for the right L4 transforaminal epidural steroid injection. There was no sign of infection at the skin site for needle insertion. The skin was anesthetized with 2% lidocaine with a 27 gauge 1-1/2 inch needle. Then a 22 gauge 3-1/2 inch spinal needle, advanced to the right L4 and L5. Under direct fluoroscopic guidance needle position was verified in three views; AP, oblique and lateral, with 0.2 cubic centimeters increments of Isovue-200 dye. No intravascular flow pattern was observed under live fluoroscopy. Then 3cc mixture of 6 milligrams of Celestone and local was slowly injected after negative aspiration of heme, cerebrospinal fluid and no paresthesias were noted. The needle was cleared prior to removal from the skin. The procedure was repeated as above for the right L5 transforaminal epidural.No adverse reactions were noted. The patient was brought to the recovery room awake and in good condition by my staff. The patient was monitored and discharge instructions were given after a brief stay in the recovery area. Both oral and written discharge and follow up instructions were given. The patient will follow up in the clinic in 3-4 weeks post procedure to evaluate the efficacy. The patient verbalized understanding including understanding of those signs and symptoms that would require emergency care and knows how to contact the office if there are any problems or questions in the meantime. PREOPERATIVE PAIN: 5/10. POSTOPERATIVE PAIN: 3/10. FOLLOWUP: In the Pain Clinic in 3 weeks. HIEN / GEOVANI /[id number] MTDRiddhi
== END 2020-04-01 13:56 ==
LOC: MW.SDS 11:56
PROVIDERS: ATTEND Anesthesiology
DX: G89.29 Other chronic pain (principal); M51.16 Intervertebral disc disorders with radiculopathy, lumbar region; M51.17 Intervertebral disc disorders with radiculopathy, lumbosacral region; M47.26 Other spondylosis with radiculopathy, lumbar region; J45.909 Unspecified asthma, uncomplicated; M79.18 Myalgia, other site; I10 Essential (primary) hypertension; Z98.890 Other specified postprocedural states; Z98.84 Bariatric surgery status; Z91.041 Radiographic dye allergy status; Z79.899 Other long term (current) drug therapy; Z87.891 Personal history of nicotine dependence
CPT/HCPCS: J0702

== ENCOUNTER 2020-06-03 10:53 | Day surgery (SDC) | payer BC ==
[~2020-06-03 10:53] MED LIST: Betamethasone Acetate/Betamethasone Sod Phosphate 30 MG/5 ML MDV EPIDUR ONE; Lidocaine 2% 5 ML SDV INJECT ONE; Ropivacaine 0.5% 5 MG/ML 30 ML SDV INJECT ONE
[2020-06-03] MEDS ORDERED: Ropivacaine 0.5% 5 MG/ML 30 ML SDV INJECT ONE (12:30)
[2020-06-03] MEDS ORDERED: Lidocaine 2% 5 ML SDV INJECT ONE (12:30)
[2020-06-03] MEDS ORDERED: Betamethasone Acetate/Betamethasone Sod Phosphate 30 MG/5 ML MDV EPIDUR ONE (12:30)
--- NOTE | 2020-06-03 20:55 | OR ---
SURGEON: Elle Clark D.O. DATE OF PROCEDURE: 06/03/2020 Or Staff: NELI Hinton RN S [place], RT PREOPERATIVE DIAGNOSES: 1. Lumbar degenerative disk disease, L4-5, L5-S1. 2. Right L5-S1 radiculopathy. 3. Chronic low back pain. POSTOPERATIVE DIAGNOSES: 1. Lumbar degenerative disk disease, L4-5, L5-S1. 2. Right L5-S1 radiculopathy. 3. Chronic low back pain. PROCEDURE PERFORMED: 1. Right S1 transforaminal epidural steroid injection. 2. Fluoroscopic guidance for needle placement. 3. Local with oral Valium for sedation. SCREENING QUESTIONS: The patient answered "no" to all of the following questions: 1. Are you allergic to iodine, Betadine or latex? 2. Do you have a bleeding disorder? 3. Do you have any joint replacements, heart valve replacements, or a pacemaker? 4. Are you allergic to anti-inflammatories or blood thinners? 5. Do you have any current local or systemic infections? 6. Patient with "contrast" allergy. DESCRIPTION OF PROCEDURE: The patient had the procedure thoroughly explained including risks, benefits and alternatives. Consent was signed in my clinic indicating understanding and willingness to proceed. The patient presented to [facility] where the patient was escorted to the dressing room to disrobe and change into a hospital gown. Preoperative vital signs were taken and stable. The patient reported that Valium was taken prior to the procedure. The patient was brought to the procedure room and placed in the prone position on the table. A pillow was placed under the abdomen in order to flatten the lumbar lordosis. The back was prepped with ChloraPrep and sterilely draped. All personnel in the operating room were dressed in appropriate attire including surgical scrubs, head and shoe covers. This was to ensure sterility while in the treatment room. During the time fluoroscopy was in use, all personnel in the operating room wore lead solitario with thyroid collars. Sterile technique was used during the procedure. The fluoroscope was placed for the right K0zphmie transforaminal epidural steroid injection. There was no sign of infection at the skin site for needle insertion. The skin was anesthetized with 2% lidocaine with a 27 gauge 1-1/2 inch needle. Then a 22 gauge 3-1/2 inch spinal needle, advanced to the foramen. Under direct fluoroscopic guidance needle position was verified in three views; AP, oblique and lateral . Then a 3cc test dose of 1.5% lido with 1:200,000 epi was negative. Then total of 12 milligrams of Celestone and local was slowly injected after negative aspiration of heme, cerebrospinal fluid and no paresthesias were noted. The needle was cleared prior to removal from the skin. No adverse reactions were noted. The patient was brought to the recovery room awake and in good condition by my staff. The patient was monitored and discharge instructions were given after a brief stay in the recovery area. Both oral and written discharge and follow up instructions were given. The patient will follow up in the clinic in 3-4 weeks post procedure to evaluate the efficacy. The patient verbalized understanding including understanding of those signs and symptoms that would require emergency care and knows how to contact the office if there are any problems or questions in the meantime. PREOPERATIVE PAIN: 5/10. POSTOPERTIVE PAIN: 2/10. PLAN: Follow up in the pain clinic 3 weeks. HIEN / GEOVANI /[id number] TK
== END 2020-06-03 13:29 ==
LOC: MW.SDS 10:53
PROVIDERS: ATTEND Anesthesiology
DX: G89.29 Other chronic pain (principal); M51.16 Intervertebral disc disorders with radiculopathy, lumbar region; M51.17 Intervertebral disc disorders with radiculopathy, lumbosacral region; M47.26 Other spondylosis with radiculopathy, lumbar region; J45.909 Unspecified asthma, uncomplicated; M10.9 Gout, unspecified; Z91.041 Radiographic dye allergy status; Z91.09 Other allergy status, other than to drugs and biological substances; Z79.899 Other long term (current) drug therapy; Z87.891 Personal history of nicotine dependence; Z98.890 Other specified postprocedural states; Z98.84 Bariatric surgery status
CPT/HCPCS: 64483; J0702; J2795

== ENCOUNTER 2021-03-20 02:22 | Emergency (ER) | payer BC ==
[2021-03-20 02:44] VITALS: PULSE 87
[2021-03-20 03:21] LABS: CORONAVIRUS COVID-19 NAA NEGATIVE (NEGATIVE); INFLUENZA A NAA NEGATIVE (NEGATIVE); INFLUENZA B NAA NEGATIVE (NEGATIVE)
[2021-03-20 03:56] VITALS: BP 140/96
== END 2021-03-20 03:56 | disposition home or self-care (01) ==
LOC: MW.ED 02:22
DX: J06.9 Acute upper respiratory infection, unspecified (principal); I10 Essential (primary) hypertension; J45.909 Unspecified asthma, uncomplicated; E66.9 Obesity, unspecified; Z91.041 Radiographic dye allergy status; Z88.8 Allergy status to other drugs, medicaments and biological substances; Z79.899 Other long term (current) drug therapy; Z20.822 Contact with and (suspected) exposure to COVID-19
CPT/HCPCS: 0240U; 71045; 71045-26; 99283-25

== ENCOUNTER 2021-07-27 21:27 | Emergency (ER) | payer BC ==
[2021-07-27] MEDS ORDERED: Ondansetron 4 MG/2 ML SDV IVPUSH ONE (22:44)
[2021-07-27] MEDS ORDERED: Sodium Chloride 0.9% 1,000 ML IV ONE (22:44)
[2021-07-27 23:19] LABS: CORONAVIRUS COVID-19 NAA NEGATIVE (NEGATIVE); INFLUENZA A NAA NEGATIVE (NEGATIVE); INFLUENZA B NAA NEGATIVE (NEGATIVE)
[2021-07-27 23:28] LABS: BLOOD UREA NITROGEN,BUN 18 mg/dL (7.0-18.0); CARBON DIOXIDE,CO2 25.2 mmol/L (21.0-32.0); CHLORIDE,CL 102 mmol/L (98-107); GLUCOSE RANDOM 104 mg/dL (74-106); LIPASE 164 U/L (73-393); POTASSIUM,K 3.7 mmol/L (3.5-5.1); SODIUM,NA 136 mmol/L (136-148)
[2021-07-28] MEDS ORDERED: Ibuprofen 600 MG Tab PO STA (00:09)
[2021-07-28 00:17] VITALS: BP 139/87; PULSE 106
== END 2021-07-28 00:35 | disposition home or self-care (01) ==
LOC: MW.ED 21:27
DX: B34.9 Viral infection, unspecified (principal); I10 Essential (primary) hypertension; E66.9 Obesity, unspecified; Z68.30 Body mass index [BMI] 30.0-30.9, adult; Z20.822 Contact with and (suspected) exposure to COVID-19; Z91.048 Other nonmedicinal substance allergy status; Z91.041 Radiographic dye allergy status; Z79.899 Other long term (current) drug therapy
CPT/HCPCS: 0240U; 36415; 71045; 80053; 81003; 83690; 84484; 85025; 87040; 93005; 96361; 96374; 99284; A9270; J2405; J7030

== ENCOUNTER 2021-10-21 01:41 | Emergency (ER) | payer BC ==
[2021-10-21] MEDS ORDERED: Lactated Ringers 1,000 ML IV STA ×2 (02:08→03:43)
[2021-10-21] MEDS ORDERED: Ondansetron 4 MG/2 ML SDV IVPUSH ONE (02:08)
[2021-10-21 02:32] LABS: CARBON DIOXIDE,CO2 26.1 mmol/L (21.0-32.0); POTASSIUM,K 3.8 mmol/L (3.5-5.1)
[2021-10-21 02:56] LABS: CORONAVIRUS COVID-19 NAA NEGATIVE (NEGATIVE); INFLUENZA A NAA NEGATIVE (NEGATIVE); INFLUENZA B NAA NEGATIVE (NEGATIVE); RESPIRATORY SYNCYTIAL VIR NAA NEGATIVE (NEGATIVE)
[2021-10-21] MEDS ORDERED: Morphine 4 MG/ML VIAL IVPUSH ONE (02:57)
[2021-10-21] MEDS ORDERED: Iopamidol 755 MG/ML 500 ML Multipack Bottle IVPUSH STA (03:45)
[2021-10-21] MEDS ORDERED: Acetaminophen/HYDROcodone 325-5 MG Tab PO ONE (05:45)
[2021-10-21] MEDS ORDERED: Ondansetron 4 MG Tab.DIS PO ONE (05:45)
[2021-10-21 06:00] VITALS: BP 134/88; PULSE 63
== END 2021-10-21 05:56 | disposition home or self-care (01) ==
LOC: MW.ED 01:41
DX: R10.12 Left upper quadrant pain (principal); R11.2 Nausea with vomiting, unspecified; R19.7 Diarrhea, unspecified; I10 Essential (primary) hypertension; E66.9 Obesity, unspecified; Z68.32 Body mass index [BMI] 32.0-32.9, adult; Z91.041 Radiographic dye allergy status; Z91.048 Other nonmedicinal substance allergy status; Z88.8 Allergy status to other drugs, medicaments and biological substances; Z20.822 Contact with and (suspected) exposure to COVID-19
CPT/HCPCS: 0241U; 36415; 74177; 80053; 81003; 83690; 85025; 96361; 96374; 96375; 99284; A9270; J2270; J2405; J7120; Q9967

== ENCOUNTER 2022-01-05 20:47 | Emergency (ER) | payer OTHER, BC ==
[2022-01-05] MEDS ORDERED: Ketorolac 30 MG/ML SDV IM ONE (21:18)
[2022-01-05] MEDS ORDERED: Acetaminophen/oxyCODONE 325-10 MG Tab PO ONE (22:17)
[2022-01-05 22:46] VITALS: BP 139/85; PULSE 77
== END 2022-01-05 22:45 | disposition home or self-care (01) ==
LOC: MW.ED 20:47
DX: M76.812 Anterior tibial syndrome, left leg (principal); I10 Essential (primary) hypertension; E66.9 Obesity, unspecified; Z68.30 Body mass index [BMI] 30.0-30.9, adult; Z91.041 Radiographic dye allergy status; Z88.8 Allergy status to other drugs, medicaments and biological substances
CPT/HCPCS: 73590; 96372; 99283; A9270; J1885

== ENCOUNTER 2022-05-15 04:15 | Emergency (ER) | payer BC, OTHER ==
[2022-05-15 05:35] LABS: CORONAVIRUS COVID-19 NAA NEGATIVE (NEGATIVE); INFLUENZA A NAA NEGATIVE (NEGATIVE); INFLUENZA B NAA NEGATIVE (NEGATIVE); RESPIRATORY SYNCYTIAL VIR NAA NEGATIVE (NEGATIVE)
[2022-05-15 07:11] VITALS: BP 140/74; PULSE 78
== END 2022-05-15 07:09 | disposition home or self-care (01) ==
LOC: MW.ED 04:15
DX: J06.9 Acute upper respiratory infection, unspecified (principal); J40 Bronchitis, not specified as acute or chronic; I10 Essential (primary) hypertension; E66.9 Obesity, unspecified; Z68.29 Body mass index [BMI] 29.0-29.9, adult; Z91.041 Radiographic dye allergy status; Z91.048 Other nonmedicinal substance allergy status; Z88.8 Allergy status to other drugs, medicaments and biological substances; Z79.899 Other long term (current) drug therapy; Z20.822 Contact with and (suspected) exposure to COVID-19
CPT/HCPCS: 0241U; 71046; 93005; 99284; 93010

== ENCOUNTER 2022-05-18 13:38 | Emergency (ER) | payer BC ==
[2022-05-18] MEDS ORDERED: methylPREDNISolone Sodium Succinate 125 MG/2 ML SDV IVPUSH ONE (13:57)
[2022-05-18] MEDS ORDERED: HYDROmorphone 1 MG/ML Syringe IVPUSH ONE ×2 (13:57→15:19)
[2022-05-18] MEDS ORDERED: Ondansetron 4 MG/2 ML SDV IVPUSH ONE (13:57)
[2022-05-18] MEDS ORDERED: Ketorolac 30 MG/ML SDV IVPUSH ONE (13:57)
[2022-05-18] MEDS ORDERED: Sodium Chloride 0.9% 1,000 ML IV ONE (15:32)
[2022-05-18] MEDS ORDERED: Acetaminophen/oxyCODONE 325-10 MG Tab PO ONE (16:17)
[2022-05-18 16:31] VITALS: BP 146/74; PULSE 82
== END 2022-05-18 16:31 | disposition home or self-care (01) ==
LOC: MW.ED 13:38
DX: M51.26 Other intervertebral disc displacement, lumbar region (principal); I10 Essential (primary) hypertension; J45.909 Unspecified asthma, uncomplicated; E66.9 Obesity, unspecified; Z68.31 Body mass index [BMI] 31.0-31.9, adult; Z88.8 Allergy status to other drugs, medicaments and biological substances; Z91.041 Radiographic dye allergy status; Z79.899 Other long term (current) drug therapy
CPT/HCPCS: 72148; 96361; 96374; 96375; 96376; 99283; A9270; J1170; J1885; J2405; J2930; J7030; 99284

== ENCOUNTER 2022-08-18 17:14 | Emergency (ER) | payer BC ==
[2022-08-18 17:24] LABS: APPEARANCE,URINE CLOUDY; BILIRUBIN,URINE NEGATIVE (NEGATIVE); COLOR,URINE YELLOW; GLUCOSE,URINE NEGATIVE (NEGATIVE); KETONES,URINE NEGATIVE (NEGATIVE); LEUKOCYTE ESTERASE,URINE NEGATIVE (NEGATIVE); NITRITE,URINE NEGATIVE (NEGATIVE); OCCULT BLOOD,URINE LARGE (NEGATIVE); PROTEIN,URINE TRACE mg/dL (NEGATIVE); UROBILINOGEN,URINE 0.2 EU/dL (<2.0)
[2022-08-18 17:35] LABS: AMORPHOUS SEDIMENT,URINE FEW (NEGATIVE); BACTERIA,URINE FEW (NEGATIVE); EPITHELIAL CELLS,URINE FEW (NONE-FEW); MUCUS,URINE OCCASIONAL (NONE-MOD); RBC,URINE 50-75 (0-2/HPF); SQUAMOUS EPITHELIAL CELLS,UR FEW; WBC,URINE NONE SEEN (0-5/HPF)
[2022-08-18] MEDS ORDERED: Ketorolac 30 MG/ML SDV IVPUSH ONE (17:54)
[2022-08-18] MEDS ORDERED: Naloxone 0.4 MG/ML SDV IVPUSH PRN (17:55)
[2022-08-18] MEDS ORDERED: Morphine 4 MG/ML Syringe IVPUSH ONE (17:55)
[2022-08-18 18:11] LABS: BASOPHILS PERCENT AUTO 0.4 % (0.0-1.5); EOSINOPHILS ABSOLUTE AUTO 0.1 K/uL (0.0-0.7); EOSINOPHILS PERCENT AUTO 1.6 % (0.0-7.0); HEMATOCRIT 39.8 % (38.0-50.0); HEMOGLOBIN 14.3 g/dL (13.0-17.0); LYMPHOCYTES ABSOLUTE AUTO 2.2 K/uL (0.6-2.4); LYMPHOCYTES PERCENT AUTO 25.6 % (16.0-40.0); MEAN CORPUSCULAR HEMOGLOBIN 31.5 pg (27.0-32.0); MEAN CORPUSCULAR HGB CONC 35.9 g/dL (31.0-37.0); MEAN CORPUSCULAR VOLUME 87.7 fL (80.0-98.0); MONOCYTES ABSOLUTE AUTO 0.6 K/uL (0.0-0.8); MONOCYTES PERCENT AUTO 6.6 % (0.0-15.0); NEUTROPHILS ABSOLUTE AUTO 5.6 K/uL (1.4-5.7); NEUTROPHILS PERCENT AUTO 65.8 % (48.0-80.0); NRBC ABSOLUTE 0 K/uL; PLATELET COUNT,PLT 176 K/uL (150-400); RED BLOOD CELL COUNT 4.54 M/uL (4.50-5.90); WHITE BLOOD CELL COUNT,WBC 8.54 K/uL (4.0-11.0)
[2022-08-18] MEDS ORDERED: Ondansetron 4 MG/2 ML SDV IVPUSH ONE (18:13)
[2022-08-18 18:31] LABS: A/G RATIO 1.3 (0.9-1.6); BILIRUBIN TOTAL 0.6 mg/dL (0.2-1.0); CALCIUM 8.3 mg/dL (8.5-10.1); CARBON DIOXIDE,CO2 26.7 mmol/L (21.0-32.0); CREATININE 1.5 mg/dL (0.8-1.3); EST CRCL DRUG DOSING (CG) 80.59 mL/min; PROTEIN TOTAL,TP 7.1 g/dL (6.4-8.2)
[2022-08-18] MEDS ORDERED: Tamsulosin 0.4 MG Cap.ER PO ONE (19:46)
[2022-08-18] MEDS ORDERED: Ondansetron 4 MG Tab.DIS PO ONE (19:46)
[2022-08-18] MEDS ORDERED: Acetaminophen 325 MG Tab PO ONE (19:46)
[2022-08-18] MEDS ORDERED: Acetaminophen 500 MG Tab ONE (19:57)
[2022-08-18] MEDS ORDERED: Acetaminophen 500 MG Tab PO STA (20:04)
[2022-08-18 20:21] VITALS: BP 142/80; PULSE 67
== END 2022-08-18 20:21 | disposition home or self-care (01) ==
LOC: MW.ED 17:14
DX: N20.0 Calculus of kidney (principal); I10 Essential (primary) hypertension; J45.909 Unspecified asthma, uncomplicated; E66.9 Obesity, unspecified; Z68.31 Body mass index [BMI] 31.0-31.9, adult; Z91.048 Other nonmedicinal substance allergy status; Z88.8 Allergy status to other drugs, medicaments and biological substances; Z91.041 Radiographic dye allergy status; Z79.899 Other long term (current) drug therapy
CPT/HCPCS: 36415; 74176; 80053; 81001; 83690; 85025; 96374; 96375; 99284; A9270; J1885; J2270; J2405

== ENCOUNTER 2023-01-26 11:35 | Emergency (ER) | payer BC ==
[2023-01-26] MEDS ORDERED: Amoxicillin/Clavulanate K 875-125 MG Tab PO ONE (12:31)
[2023-01-26] MEDS ORDERED: HYDROmorphone 1 MG/ML Syringe IM ONE (12:31)
[2023-01-26 13:25] VITALS: BP 180/110; PULSE 73
== END 2023-01-26 13:24 | disposition home or self-care (01) ==
LOC: MW.ED 11:35
DX: K04.7 Periapical abscess without sinus (principal); I10 Essential (primary) hypertension; E66.9 Obesity, unspecified; Z79.899 Other long term (current) drug therapy; Z91.041 Radiographic dye allergy status; Z91.048 Other nonmedicinal substance allergy status; Z68.32 Body mass index [BMI] 32.0-32.9, adult
CPT/HCPCS: 96372; 99283; A9270; J1170

== ENCOUNTER 2023-03-14 22:30 | Emergency (ER) | payer BC ==
[2023-03-14 22:45] VITALS: PULSE 60
[2023-03-15 00:31] VITALS: BP 133/74
== END 2023-03-14 23:47 | disposition home or self-care (01) ==
LOC: MW.ED 22:30
DX: T15.92XA Foreign body on external eye, part unspecified, left eye, initial encounter (principal); I10 Essential (primary) hypertension; J45.909 Unspecified asthma, uncomplicated; E66.9 Obesity, unspecified; Z79.899 Other long term (current) drug therapy; Z91.041 Radiographic dye allergy status; Z91.048 Other nonmedicinal substance allergy status; Z88.8 Allergy status to other drugs, medicaments and biological substances; W20.8XXA Other cause of strike by thrown, projected or falling object, initial encounter; Z68.32 Body mass index [BMI] 32.0-32.9, adult
CPT/HCPCS: 99283